=== PATIENT | male | born 1945 | race Caucasian/White ===

== ENCOUNTER 2018-05-29 16:50 | Observation (INO) ==
[2018-05-29 17:45] LABS: Hematocrit 44.2 % (37.5-50.1); Mean Corpuscular HGB Conc 31.7 g/dL (31.6-35.5); Mean Corpuscular Hemoglobin 30.2 pg (28.0-33.3); Mean Corpuscular Volume 95.3 fL (83.0-100.0); Mean Platelet Volume 10.9 fL (9.4-12.4); Platelet Count 190 K/mcL (140-400); Red Blood Count 4.64 M/mcL (4.19-5.50); Red Cell Distribution Width 14.4 % (11.5-14.5)
--- NOTE | 2018-05-29 17:48 | Emergency Department Note ---
Disposition Clinical Impression: Chest pain Qualifiers: Chest pain type: unspecified Qualified Code(s): R07.9 - Chest pain, unspecified Disposition: Still a Patient Condition: Fair Referrals: Osmany Berrios DO [Primary Care Provider] - Forms: ED Satisfaction Letter General Adult HPI - General Chief complaint: ED Chest Pain Stated complaint: SOB/Chest heaviness Time Seen by Provider: 05/29/18 17:04 Source: patient Limitations: no limitations Nursing Notes Reviewed: Yes Vital Signs Reviewed: Yes - History of Present Illness HPI Narrative: Patient presents with chest pressure which began at 7:00 this morning at home gradually and is constant and is worse with exertion with associated diaphoresis and dyspnea and a pleuritic aspect. The patient did have rotator cuff surgery of his right shoulder about one week ago. He did stop his Plavix briefly. He does have a history of heart. He is here with his 2 daughters who are both nurses. He denies any radiation and specifically no radiation to the neck, arm, jaw or back. The patient does have weight gain as well as lower extremity edema and is gained about 10 pounds of weight. Social history: Stopped smoking 19 years ago. No alcohol or drugs.( Pain Scale: 3 - Related Data Home Medications Medication Instructions Recorded Confirmed RX: Levothyroxine [Synthroid] 75 mcg PO DAILY 08/07/15 05/17/18 RX: metFORMIN [Glucophage] 500 mg PO BIDWM 08/07/15 05/17/18 RX: Aspirin [Lo-Dose Aspirin EC] 81 mg PO DAILY 09/05/16 05/17/18 RX: Nitroglycerin [Nitrostat] 0.4 mg SL Q5M PRN 09/05/16 05/17/18 RX: Atorvastatin [Lipitor] 40 mg PO HS 11/08/17 05/17/18 RX: Lansoprazole [Prevacid] 30 mg PO DAILY 11/08/17 05/18/18 RX: Losartan/Hydrochlorothiazide 1 tab PO DAILY 11/08/17 05/18/18 [Hyzaar 100-25 Tablet] RX: Psyllium Husk [Daily Fiber] 2 cap PO BID 11/08/17 05/17/18 RX: Ranitidine HCl [Acid Culinary Assistant] 150 mg PO BID 05/18/18 05/18/18 Previous Rx's Medication Instructions Recorded Albuterol Sulfate [Ventolin Hfa] 1 puff IH Q6H #1 hfa.aer.ad 05/20/18 RX: predniSONE [PredniSONE] 40 mg PO DAILY #5 tablet 05/20/18 levoFLOXacin [Levaquin] 750 mg PO DAILY #4 tablet 05/20/18 Allergies Allergy/AdvReac Type Severity Reaction Status Date / Time hydrocodone [From Vicodin] AdvReac Itching Verified 05/18/18 12:11 All systems ED: reviewed and negative except as stated. Past Medical History - Past Medical History Medical history: Reports: CHF, diabetes, hyperlipidemia, hypertension, kidney stones, RA, thyroid disease, other Surgical history: Reports: thyroidectomy, other Psychiatric history: Reports: no psych history - Social History Smoking Status: Former smoker Smokeless Tobacco Status: No Alcohol use: Reports: none Drug use: Reports: none Physical Exam CONSTITUTIONAL: Alert and oriented X3, well-nourished, well appearing, in no apparent distress HEAD: Normocephalic; atraumatic. EYES: PERRL, no scleral icterus. NOSE: The nose is normal in appearance without rhinorrhea RESP: Normal chest excursion with respiration; breath sounds was some minimal bilateral crackles which are symmetric and no wheezing CARD: Regular rhythm, without murmurs, rub or gallop ABD: Non-distended; non-tender, soft,without rigidity, rebound or guarding SKIN: Normal for age and race; warm and dry; no apparent lesions Extremities: Pulses 2+ and equal in all 4 extremities, bilateral symmetric lower extremity swelling with pitting pretibial edema - General Limitations: no limitations General appearance: alert, in no apparent distress Course Vital Signs Temperature 98.0 F 05/29/18 16:53 Pulse Rate 71 05/29/18 16:53 Respiratory Rate 05/29/18 16:53 Blood Pressure 139/66 05/29/18 16:53 O2 Sat by Pulse Oximetry 95 05/29/18 16:53 Temperature 98.0 F 05/29/18 16:53 Pulse Rate 73 05/29/18 19:15 Respiratory Rate 20 05/29/18 19:15 Blood Pressure 150/106 05/29/18 19:15 O2 Sat by Pulse Oximetry 95 05/29/18 19:15 Oxygen Delivery Oxygen Delivery Room Air Medical Decision Making - MDM Narrative Medical decision making narrative: The patient will have labs including BNP, troponin, d-dimer as well as a right upper extremity Doppler study, I did review the EKG showing sinus rhythm with a rate of 68 without acute ischemic change I did compared to a previous EKG from May 17 without significant change. Patient will be admitted to the hospital. Labs and chest x-ray are pending and will receive IV Lasix and nitroglycerin paste 1747 - Lab Data Result diagrams: 05/29/18 17:29 05/29/18 17:29 Lab Results 05/29/18 05/29/18 05/29/18 Range/Units 17:29 17:29 17: WBC 15.5 H (4.3-11.1) K/mcL RBC 4.64 (4.19-5.50) M/mcL Hgb 14.0 (12.9-16.9) g/dL Hct 44.2 (37.5-50.1) % MCV 95.3 (83.0-100.0) fL MCH 30.2 (28.0-33.3) pg MCHC 31.7 (31.6-35.5) g/dL RDW 14.4 (11.5-14.5) % Plt Count 190 (140-400) K/mcL MPV 10.9 (9.4-12.4) fL D-Dimer 1050 H (0-500) ng/mLFEU Sodium (136-145) mEq/L Potassium (3.5-5.1) mEq/L Chloride (98-107) mEq/L Carbon Dioxide (23-29) mEq/L BUN (8-23) mg/dL Creatinine (0.70-1.30) mg/dL Est GFR ( Amer) (> 60) Est GFR (Non-Af Amer) (> 60) BUN/Creatinine Ratio (6-26) Glucose (70-105) mg/dL Calculated Osmolality (280-300) Calcium (8.6-10.3) mg/dL Troponin I (< 0.04) ng/mL B-Natriuretic Peptide 102 H (Less than 100) pg/mL 05/29/18 Range/Units 17:29 WBC (4.3-11.1) K/mcL RBC (4.19-5.50) M/mcL Hgb (12.9-16.9) g/dL Hct (37.5-50.1) % MCV (83.0-100.0) fL MCH (28.0-33.3) pg MCHC (31.6-35.5) g/dL RDW (11.5-14.5) % Plt Count (140-400) K/mcL MPV (9.4-12.4) fL D-Dimer (0-500) ng/mLFEU Sodium 137 (136-145) mEq/L Potassium 4.0 (3.5-5.1) mEq/L Chloride 100 (98-107) mEq/L Carbon Dioxide 30 H (23-29) mEq/L BUN 14 (8-23) mg/dL Creatinine 0.64 L (0.70-1.30) mg/dL Est GFR ( Amer) > 60 (> 60) Est GFR (Non-Af Amer) > 60 (> 60) BUN/Creatinine Ratio 22 (6-26) Glucose 122 H (70-105) mg/dL Calculated Osmolality 286 (280-300) Calcium 9.3 (8.6-10.3) mg/dL Troponin I < 0.03 (< 0.04) ng/mL B-Natriuretic Peptide (Less than 100) pg/mL
[2018-05-29 18:05] LABS: BUN/Creatinine Ratio 22 (6-26); Blood Urea Nitrogen 14 mg/dL (8-23); Calcium 9.3 mg/dL (8.6-10.3); Carbon Dioxide 30 mEq/L (23-29); Chloride 100 mEq/L (98-107); Glucose 122 mg/dL (70-105); Osmolality,Calculated 286 (280-300); Sodium 137 mEq/L (136-145); eGFR For Non-African Americans > 60 (> 60)
[2018-05-29 18:06] LABS: Troponin I < 0.03 ng/mL (< 0.04)
[2018-05-29] MEDS ORDERED: Isovue-370 500 ML BOTTLE IVP ONE (19:19)
[2018-05-29] MEDS ORDERED: *HR* OxyCODONE/APAP 5/325 TABLET PO ONE (19:22)
--- NOTE | 2018-05-29 21:42 | Emergency Department Note ---
Disposition Clinical Impression: Chest pain Disposition: Still a Patient Condition: Fair Referrals: Osmany Berrios DO [Primary Care Provider] - Forms: ED Satisfaction Letter General Adult HPI - General Chief complaint: ED Chest Pain Stated complaint: SOB/Chest heaviness Time Seen by Provider: 05/29/18 17:04 Source: patient Limitations: no limitations Nursing Notes Reviewed: Yes Vital Signs Reviewed: Yes - History of Present Illness Pain Scale: 3 - Related Data Home Medications Medication Instructions Recorded Confirmed Levothyroxine [Synthroid] 75 mcg PO DAILY 08/07/15 05/17/18 metFORMIN [Glucophage] 500 mg PO BIDWM 08/07/15 05/17/18 Aspirin [Lo-Dose Aspirin EC] 81 mg PO DAILY 09/05/16 05/17/18 Nitroglycerin [Nitrostat] 0.4 mg SL Q5M PRN 09/05/16 05/17/18 Atorvastatin [Lipitor] 40 mg PO HS 11/08/17 05/17/18 Lansoprazole [Prevacid] 30 mg PO DAILY 11/08/17 05/18/18 Losartan/Hydrochlorothiazide 1 tab PO DAILY 11/08/17 05/18/18 [Hyzaar 100-25 Tablet] Psyllium Husk [Daily Fiber] 2 cap PO BID 11/08/17 05/17/18 Ranitidine HCl [Acid Helper Electrical] 150 mg PO BID 05/18/18 05/18/18 Previous Rx's Medication Instructions Recorded Albuterol Sulfate [Ventolin Hfa] 1 puff IH Q6H #1 hfa.aer.ad 05/20/18 levoFLOXacin [Levaquin] 750 mg PO DAILY #4 tablet 05/20/18 predniSONE [PredniSONE] 40 mg PO DAILY #5 tablet 05/20/18 Allergies Allergy/AdvReac Type Severity Reaction Status Date / Time hydrocodone [From Vicodin] AdvReac Itching Verified 05/18/18 12:11 Past Medical History - Past Medical History Medical history: Reports: CHF, diabetes, hyperlipidemia, hypertension, kidney stones, RA, thyroid disease, other Surgical history: Reports: thyroidectomy, other Psychiatric history: Reports: no psych history - Social History Smoking Status: Former smoker Smokeless Tobacco Status: No Alcohol use: Reports: none Drug use: Reports: none Physical Exam - General Limitations: no limitations General appearance: alert, in no apparent distress Course - Reevaluation(s) Reevaluation #1: See patient in sign out at 2200 by the departing emergency medicine attending Dr. Milton Jara. Patient has a history of PEs had recent wrist surgery comes in with chest pain shortness of breath. His workup revealed an elevated d-dimer of 1050. CT angiogram of the chest was reported to exclude the possibility of pulmonary embolism. If the CT scan is negative patient be admitted for acute coronary syndrome. Disposition pending Time: 21:41 Reevaluation #2: ED workup is completed. Skin trimmed chest is read by radiology as negative for pulmonary embolism. Again confirmed with patient that his cardiac history is positive for coronary artery disease with one stent placed in 2001 with no further incidents. Hospitalist has been paged. Patient resting comfortably in bed pain free at this time. Admission disposition pending Time: 22:59 Vital Signs Temperature 98.0 F 05/29/18 16:53 Pulse Rate 71 05/29/18 16:53 Respiratory Rate 20 05/29/18 16:53 Blood Pressure 139/66 05/29/18 16:53 O2 Sat by Pulse Oximetry 95 05/29/18 16:53 Temperature 98.0 F 05/29/18 16:53 Pulse Rate 68 05/29/18 22:32 Respiratory Rate 22 05/29/18 22:32 Blood Pressure 128/82 05/29/18 22:32 O2 Sat by Pulse Oximetry 95 05/29/18 22:32 Oxygen Delivery Oxygen Delivery Room Air Medical Decision Making - Lab Data Result diagrams: 05/29/18 17:29 05/29/18 17:29 Lab Results 05/29/18 05/29/18 05/29/18 Range/Units 17:29 17:29 17:29 WBC 15.5 H (4.3-11.1) K/mcL RBC 4.64 (4.19-5.50) M/mcL Hgb 14.0 (12.9-16.9) g/dL Hct 44.2 (37.5-50.1) % MCV 95.3 (83.0-100.0) fL MCH 30.2 (28.0-33.3) pg MCHC 31.7 (31.6-35.5) g/dL RDW 14.4 (11.5-14.5) % Plt Count 190 (140-400) K/mcL MPV 10.9 (9.4-12.4) fL D-Dimer 1050 H (0-500) ng/mLFEU Sodium (136-145) mEq/L Potassium (3.5-5.1) mEq/L Chloride (98-107) mEq/L Carbon Dioxide (23-29) mEq/L BUN (8-23) mg/dL Creatinine (0.70-1.30) mg/dL Est GFR ( Amer) (> 60) Est GFR (Non-Af Amer) (> 60) BUN/Creatinine Ratio (6-26) Glucose (70-105) mg/dL Calculated Osmolality (280-300) Calcium (8.6-10.3) mg/dL Troponin I (< 0.04) ng/mL B-Natriuretic Peptide 102 H (Less than 100) pg/mL 05/29/18 Range/Units 17:29 WBC (4.3-11.1) K/mcL RBC (4.19-5.50) M/mcL Hgb (12.9-16.9) g/dL Hct (37.5-50.1) % MCV (83.0-100.0) fL MCH (28.0-33.3) pg MCHC (31.6-35.5) g/dL RDW (11.5-14.5) % Plt Count (140-400) K/mcL MPV (9.4-12.4) fL D-Dimer (0-500) ng/mLFEU Sodium 137 (136-145) mEq/L Potassium 4.0 (3.5-5.1) mEq/L Chloride 100 (98-107) mEq/L Carbon Dioxide 30 H (23-29) mEq/L BUN 14 (8-23) mg/dL Creatinine 0.64 L (0.70-1.30) mg/dL Est GFR ( Amer) > 60 (> 60) Est GFR (Non-Af Amer) > 60 (> 60) BUN/Creatinine Ratio 22 (6-26) Glucose 122 H (70-105) mg/dL Calculated Osmolality 286 (280-300) Calcium 9.3 (8.6-10.3) mg/dL Troponin I < 0.03 (< 0.04) ng/mL B-Natriuretic Peptide (Less than 100) pg/mL
[2018-05-29] MEDS ORDERED: Aspirin 325 MG TABLET PO ONE (23:05)
[2018-05-29] MEDS ORDERED: Furosemide 20 MG/2 ML VIAL IVP ONE (23:57)
[2018-05-29] MEDS ORDERED: Nitroglycerin 0.4 MG TAB.SUBL SL PRN (23:58)
--- NOTE | 2018-05-29 23:58 | Internal Med History&Physical ---
Date of Encounter: 05/29/18 Time of Encounter: 23:58 Internal Medicine - H&P: HPI Chief complaint: chest pain Admitted From: Home Plans for Post Hospital Care: Home History of present illness: Aston Hatfield is a 72 year old man with coronary artery disease s/p PCI in 2005 with 1 stent placed in his RCA, hypertension and diabetes who was recently admitted for right shoulder replacement surgery with a postoperative course remarkable for acute respiratory failure due to transient paralysis of the right hemidiaphragm from the nerve block and required treatment for pneumonia with antibiotics as well as a steroid course for associated COPD. He comes in today complaining of chest pain that started when he woke up this morning describing it as a pressure sensation accompanied by shortness of breath. There was no associated diaphoresis or any radiation of the pain. It persisted through the course of the day and in the ER his evaluation was remarkable for an elevated d- dimer which prompted a CT angiogram and this was negative for pulmonary embolism. EKG is reviewed by me revealed normal sinus rhythm with occasional PVCs. No fluid congestion on x-ray. Troponin negative. He was given loading dos e of aspirin and oral pain medications. He is now admitted for observation. Of note, he was off his antiplatelet therapy for about one week during the recent perioperative window. Past Med Surg Social Fam HX - Past Medical History Medical history: CHF, diabetes, hyperlipidemia, hypertension, kidney stones, RA, thyroid disease, other Additional medical history: CAD. Renal and ureteric calculus. BPH. sleep apnea. cluster headaches. hiatal hernia Psychiatric history: no psych history - Past Surgical History Surgical History: thyroidectomy, other Additional surgical history: back sx, hernia. kidney stones. left ankle x2. sinus surgery. cardiac stent x1. shoulder surgery. ureteroscopic stone extraction. TURP. Left knee. right knee. right shoulder. left shoulder. colonoscopy. EGD. medtronic device for headaches. right thyroidectomy - Social History Smoking Status: Former smoker Smokeless Tobacco Status: No Alcohol use: none Drug use: none - Family History Father Daughter Hx Family Cardiac Disorders: Yes (HTN) Mother Hx Family Endocrine Disorder: Yes (DM) Internal Medicine - H&P: Meds Levothyroxine [Synthroid] 75 mcg PO DAILY 08/07/15 [History] metFORMIN [Glucophage] 500 mg PO BIDWM 08/07/15 [History] Aspirin [Lo-Dose Aspirin EC] 81 mg PO DAILY 09/05/16 [History] Nitroglycerin [Nitrostat] 0.4 mg SL Q5M PRN 09/05/16 [History] Atorvastatin [Lipitor] 40 mg PO HS 11/08/17 [History] Lansoprazole [Prevacid] 30 mg PO DAILY 11/08/17 [History] Losartan/Hydrochlorothiazide [Hyzaar 100-25 Tablet] 1 tab PO DAILY 11/08/17 [History] Psyllium Husk [Daily Fiber] 2 cap PO BID 11/08/17 [History] Ranitidine HCl [Acid Program Supervisor] 150 mg PO BID 05/18/18 [History] Albuterol Sulfate [Ventolin Hfa] 1 puff IH Q6H #1 hfa.aer.ad 05/20/18 [Rx] levoFLOXacin [Levaquin] 750 mg PO DAILY #4 tablet 05/20/18 [Rx] Allergy/AdvReac Type Severity Reaction Status Date / Time hydrocodone [From Vicodin] AdvReac Itching Verified 05/18/18 12:11 All Systems PM: A 10-system review of systems was performed and is negative for pertinent findings except as documented above in the HPI. - Constitutional Vitals: Temp Pulse Resp BP Pulse Ox 98.0 F 71 20 148/80 94 05/29/18 16:53 05/29/18 23:28 05/29/18 23:28 05/29/18 23:28 05/29/18 23:28 Exam: Vitals: Reviewed General: Well-developed and well-appearing white man lying comfortably in bed in no acute distress. Skin: Warm and supple. HEENT: Moist mucous membranes. No conjunctivae pallor. Neck: No lymphadenopathy. No JVD. No carotid bruits. No palpable thyroid. Chest: Normal thoracic expansion. Normal breath sounds. Clear to auscultation. Heart: Normal S1 & S2; rhythmic. No rubs or murmurs. Abdomen: Non-distended, soft and non-tender to palpation. No peritoneal reaction. Extremities: No clubbing, cyanosis or edema. No calf tenderness. Normal distal pulses. Right shoulder surgical site clean, dry and intact. Minimal pain. Neurological: Awake, alert and oriented to person, place and time. No focal deficits. Psych: Affect appropriate. Internal Med - H&P Results - Labs CBC & Chem 7: 05/29/18 17:29 05/29/18 17:29 Labs: Short CBC 05/29/18 Range/Units 17:29 WBC 15.5 H (4.3-11.1) K/mcL Hgb 14.0 (12.9-16.9) g/dL Hct 44.2 (37.5-50.1) % Plt Count 190 (140-400) K/mcL BMP 05/29/18 17:29 Sodium 137 Potassium 4.0 Chloride 100 Carbon Dioxide 30 H BUN 14 Creatinine 0.64 L Glucose 122 H Calcium 9.3 Cardiac Enzymes 05/29/18 Range/Units 17:29 Troponin I < 0.03 (< 0.04) ng/mL - Impressions ITS Impressions Chest X-Ray 05/29/18 17:17 IMPRESSION: 1. No acute cardiopulmonary abnormality. 2. Stable cardiomegaly. 3. Interval right shoulder arthroplasty. D/ / Gabo Jalloh / Gabo Jalloh Interpreting Provider: Gabo Jalloh Chest CTA 05/29/18 19:19 IMPRESSION: No evidence of pulmonary embolism or acute pulmonary abnormality. D/ / Jes Ronquillo Cha, MD / Jes Ronquillo Cha, MD Interpreting Provider: Jes Ronquillo Cha, MD - Assessment and plan (1) Chest pain Current Visit: Yes Status: Acute Assessment and plan: Newly occurring pain in a patient with known CAD. Initial troponin/ekg not suggestive of acute ischemia. Will monitor on telemetry, trend enzymes, assess for recurring pain, check TTE in the morning and possibly undergo stress test. Qualifiers: Chest pain type: unspecified Qualified Code(s): R07.9 - Chest pain, unspecified (2) COPD (chronic obstructive pulmonary disease) Current Visit: Yes Status: Acute Assessment and plan: No signs of active disease at the moment. Nebulizer therapy ordered as needed. Qualifiers: COPD type: unspecified COPD Qualified Code(s): J44.9 - Chronic obstructive pulmonary disease, unspecified (3) Status post reverse total replacement of right shoulder Current Visit: Yes Status: Acute Assessment and plan: Will continue physical therapy at home. Pain medication a needed while here. (4) Diabetes mellitus Current Visit: Yes Status: Chronic Assessment and plan: Will hold oral medications and place on insulin sliding scale for now. 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 Will resume home meds once verified. Qualifiers: Hypertension type: essential hypertension Qualified Code(s): I10 - [facility] l (primary) hypertension (6) PATRICK (obstructive sleep apnea) Current Visit: Yes Status: Chronic Assessment and plan: Non-adherent to CPAP use. Will order. (7) DVT prophylaxis Current Visit: Yes Status: Acute Assessment and plan: SubQ heparin - Time Spent With Patient Total time spent is greater than 50% in coordination of care (as documented) at patient's floor/unit and/or counseling patient: Greater than 35 minutes
[2018-05-30] MEDS ORDERED: Acetaminophen 325 MG TABLET PO PRN (00:01)
[2018-05-30] MEDS ORDERED: traMADol 50 MG TABLET PO PRN (00:01)
[2018-05-30] MEDS ORDERED: Naloxone 0.4 MG/ML INJ IVP PRN (00:01)
[2018-05-30] MEDS ORDERED: Dextrose Gel 15 GM/37.5 ML TUBE PO PRN ×2 (00:01)
[2018-05-30] MEDS ORDERED: Ipratropium/Albuterol Neb 3 ML IH PRN (00:23)
[2018-05-30 01:16] LABS: Prothrombin Time 11.7 Seconds (9.4-12.1)
[2018-05-30 01:19] LABS: Activated Partial Thrombo Time 27.9 Seconds (26.0-36.0)
[2018-05-30] MEDS ORDERED: Regadenoson 0.4 MG/5 ML SYRINGE IVP ONE (05:57)
[2018-05-30] MEDS ORDERED: *HR* Heparin 5,000 UNIT/ML VIAL SQ SCH (06:00)
[2018-05-30] MEDS: Insulin LISPRO 300 UNITS/3 ML VIAL SQ SCH ×2 (06:21→12:26)
[2018-05-30 07:17] LABS: Hematocrit 44.7 % (37.5-50.1); Hemoglobin 14.4 g/dL (12.9-16.9); Mean Corpuscular HGB Conc 32.2 g/dL (31.6-35.5); Mean Corpuscular Hemoglobin 30.4 pg (28.0-33.3); Mean Corpuscular Volume 94.5 fL (83.0-100.0); Mean Platelet Volume 11.3 fL (9.4-12.4); Platelet Count 184 K/mcL (140-400); Red Blood Count 4.73 M/mcL (4.19-5.50); Red Cell Distribution Width 14.4 % (11.5-14.5)
[2018-05-30 07:36] LABS: BUN/Creatinine Ratio 21 (6-26); Blood Urea Nitrogen 15 mg/dL (8-23); Calcium 9.3 mg/dL (8.6-10.3); Carbon Dioxide 29 mEq/L (23-29); Chloride 100 mEq/L (98-107); Glucose 186 mg/dL (70-105); Osmolality,Calculated 290 (280-300); Potassium 3.7 mEq/L (3.5-5.1); Sodium 137 mEq/L (136-145); eGFR For Non-African Americans > 60 (> 60)
[2018-05-30 08:14] LABS: Eosinophils # 0.2 K/mcL (0.0-0.6); Lymphocytes # 3.6 K/mcL (0.6-4.6); Monocytes # 0.6 K/mcL (0.0-1.3); Neutrophils # 10.5 K/mcL (1.6-8.9)
[2018-05-30 08:15] LABS: Platelet Estimate Normal (Normal); Reactive Lymphocytes Present (Not Present)
[2018-05-30] MEDS ORDERED: Aspirin Enteric Coated 81 MG Tablet PO SCH (09:00)
[2018-05-30] MEDS ORDERED: Losartan/HCTZ 50-12.5 TABLET PO SCH (09:00)
[2018-05-30 12:07] VITALS: BP 150/85
--- NOTE | 2018-05-30 12:41 | Discharge Summary ---
- NOTES TO OUTPATIENT PROVIDER Notes to Outpatient Provider: Patient presented with chest pain underwent stress test which was negative for any ischemia or infarct echo EF of 55% and mild concentric left ventricular hypertrophy and mild left ventricular diastolic dysfunction normal right ventricular structure and functionvalvular dysfunction no evidence of pulmonary hypertension Orders not resulted at time of discharge: Pending orders 05/30/18 00:00 NM julio perf SPECT multi [NM] Routine Date of Encounter: 05/30/18 Time of Encounter: 12:38 - Discharge Diagnosis (1) HTN (hypertension) Priority: Secondary Status: Chronic Qualifiers: Hypertension type: essential hypertension Qualified Code(s): I10 - Essential (primary) hypertension (2) Diabetes mellitus Priority: Secondary Status: Chronic Qualifiers: Diabetes mellitus type: type 2 Diabetes mellitus half-way insulin use: without half-way use Diabetes mellitus complication status: without complication Qualified Code(s): E11.9 - Type 2 diabetes mellitus without complications (3) PATRICK (obstructive sleep apnea) Priority: Secondary Status: Chronic (4) Status post reverse total replacement of right shoulder Priority: Secondary Status: Acute (5) Chest pain Priority: Primary Status: Acute Qualifiers: Chest pain type: unspecified Qualified Code(s): R07.9 - Chest pain, unspecified (6) COPD (chronic obstructive pulmonary disease) Priority: Secondary Status: Acute Qualifiers: COPD type: unspecified COPD Qualified Code(s): J44.9 - Chronic obstructive pulmonary disease, unspecified Hospital course: Mr. Hatfield is a 72 year old male past medical history of COPD CHF diabetes hypertension and thyroid disease coronary artery disease PCI 2005 with 1 stent placement in his RCA hypertension diabetes recently admitted for right shoulder replacement surgery with postoperative course significant for acute respiratory failure due to transient paralysis of right hemothorax diaphragm and the nerve block and required treatment for pneumonia with antibiotics as well as steroid course for COPD. He presented with chest pain started after waking with associa ramo symptoms of shortness of breath upon presentation to the ER lab work did reveal elevated d-dimer CTA angiogram was negative for pulmonary embolism EKG did show some sinus rhythm with occasional PVCs troponins were negative 3 he did undergo a cardiac stress test which was negative for any ischemia or infarct. Cardiac echo completed his did show EF 55-60% and mild concentric left ventricular hypertrophy mild left ventricular diastolic dysfunction normal right ventricular structure and function no significant valvular disease no evidence pulmonary hypertension. He has remained chest pain-free during this admission. His only complaint has been his right shoulder and right shoulder pain and tenderness. Patient states he has a appointment with orthopedics tomorrow and would like for us to remove dressing today severe he would not have to follow up tomorrow. Advised patient that he needs to follow-up with his surgeon and have dressing removed and examined by the surgeon. Of note lab work did show an elevated white count however patient has been on a steroid course due to COPD exacerbation. Advised patient to follow-up with his primary care provider since his provider Vonnie Sylvester can adjust medications accordingly. Currently patient is hemodynamically stable at this time with no chest pain and he is ready for discharge - Time Spent with Patient Total time spent providing and/or coordinating discharge services: - Discharge Medications Home Medications: Levothyroxine [Synthroid] 75 mcg PO DAILY 08/07/15 [History] metFORMIN [Glucophage] 500 mg PO BID 08/07/15 [History] Aspirin [Lo-Dose Aspirin EC] 81 mg PO HS 09/05/16 [History] Nitroglycerin [Nitrostat] 0.4 mg SL Q5M PRN 09/05/16 [History] Atorvastatin [Lipitor] 40 mg PO HS 11/08/17 [History] Losartan/Hydrochlorothiazide [Hyzaar 100-25 Tablet] 1 tab PO DAILY 11/08/17 [History] Psyllium Husk [Daily Fiber] 2 cap PO BID 11/08/17 [History] Ranitidine HCl [Acid Dynamometer Tester] 150 mg PO BID 05/18/18 [History] Albuterol Sulfate [Ventolin Hfa] 1 puff IH Q6H #1 hfa.aer.ad 05/20/18 [Rx] Lansoprazole [Prevacid] 15 mg PO DAILY 05/30/18 [History] [place]-3/Dha/Epa/Fish Oil [Cvs Fish Oil 1,000 mg Softgel] 1 cap PO QAM 05/30/18 [History] [place]-3/Dha/Epa/Fish Oil [Fish Oil 1,000 mg Softgel] 2 cap PO HS 05/30/18 [History] OxyCODONE/APAP 5/325 [Percocet 5/325 MG] 1 tab PO Q6H PRN 05/30/18 [History] Trazodone HCl 50 mg PO QPM 05/30/18 [History] Allergies/Adverse Reactions: Allergy/AdvReac Type Severity Reaction Status Date / Time hydrocodone [From Vicodin] AdvReac Itching Verified 05/18/18 12:11 Date of admission: 05/29/18 23:16 Primary care physician: Osmany Berrios DO Discharging clinician: Melba rBown Anticipated date of discharge: 05/30/18 - Constitutional Vitals: Temp Pulse Resp BP Pulse Ox 97.7 F 73 16 150/85 95 05/30/18 11:58 05/30/18 11:58 05/30/18 11:58 05/30/18 11:58 05/30/18 11:58 General appearance: Present: A&O X 3 Exam: Vitals: Reviewed General: Well-developed and well-appearing white man lying comfortably in bed in no acute distress. Skin: Warm and supple. HEENT: Moist mucous membranes. No conjunctivae pallor. Neck: No lymphadenopathy. No JVD. No carotid bruits. No palpable thyroid. Chest: Normal thoracic expansion. Normal breath sounds. Clear to auscultation. Heart: Normal S1 & S2; rhythmic. No rubs or murmurs. Abdomen: Non-distended, soft and non-tender to palpation. No peritoneal reaction. Extremities: No clubbing, cyanosis or edema. No calf tenderness. Normal distal pulses. Right shoulder surgical site clean, dry and intact. Minimal pain. Neurological: Awake, alert and oriented to person, place and time. No focal deficits. Psych: Affect appropriate. - Head Head exam: Present: atraumatic, normocephalic - Eye Eye exam: Present: PERRL, conjuntiva pink, sclera anicteric Pupils: Present: PERRL - Neck Neck exam general surgery: Present: supple, trachea midline. Absent: lymphadenopathy - Respiratory Respiratory exam: Present: CTAB. Absent: accessory muscle use, rales, rhonchi, wheezes - Cardiovascular Cardiovascular exam: Present: RRR, +S1, +S2. Absent: diastolic murmur, gallop, rubs, systolic murmur - GI/Abdominal GI/Abdominal exam: Present: normal bowel sounds, soft, no peritoneal signs. Absent: distended, tenderness - Extremities Exam Extremities exam: Present: warm, radial pulses palpable and symmetrical. Absen t: calf tenderness, cyanotic, pedal edema - Neurological Exam Neurological exam: Present: CN II-XII intact, oriented X3, no focal deficits. Absent: pronater drift, facial droop, speech deficit - Skin Skin exam: Present: dry, intact - Patient Status Disposition: Home, Self-Care Condition: Fair Functional capacity at discharge: independent ambulation Overall status at discharge: patient is back to baseline - Discharge Instructions Follow Up With: Brian Vazquez MD [Partnered Physician] - 05/31/18 Osmany Berrios DO [Primary Care Provider] - 06/06/18 1:00 pm - Diet and Activity Activity: increase activity as tolerated Diet: advance to your usual diet
--- NOTE | 2018-06-01 10:18 | Electrocardiograph Report ---
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
== END 2018-05-30 14:07 | disposition home or self-care (01) ==
LOC: EMEROOARM 16:50 → 3BNU 16:50
PROVIDERS: ADMIT Internal Medicine; ATTEND Internal Medicine

== ENCOUNTER 2018-12-24 13:43 | Observation (INO) ==
[2018-12-24] MEDS ORDERED: Nitroglycerin 0.4 MG TAB.SUBL SL PRN (14:19)
[2018-12-24] MEDS ORDERED: Aspirin 81 MG TAB.CHEW PO ONE (14:19)
--- NOTE | 2018-12-24 14:30 | Emergency Department Note ---
Disposition Clinical Impression: Chest pain Qualifiers: Chest pain type: unspecified Qualified Code(s): R07.9 - Chest pain, unspecified Dyspnea Qualifiers: Dyspnea type: unspecified Qualified Code(s): R06.00 - Dyspnea, unspecified Disposition: Admitted As Inpatient Condition: Fair Time of Disposition: 15:39 General Adult HPI - General Chief complaint: ED Shortness of Breath/Dyspnea Stated complaint: CP Time Seen by Provider: 12/24/18 13:52 Source: patient Mode of arrival: ambulatory Limitations: no limitations Nursing Notes Reviewed: Yes Vital Signs Reviewed: Yes - History of Present Illness HPI Narrative: Patient is 73-year-old male with past medical history of CHF, CAD, angioplasty 2005, HTN, HLD, RA as well as multiple orthopedic surgeries presents to the ED for evaluation of chest pain and dyspnea is been going on since yesterday evening. Chest pain began last night, substernal, dull pain, 7/10, intermittent yesterday evening and constant today. 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 Dyspnea associated with CP and worsens with inspiration. Has had recent EGD and placed on Prilosec. Feel similar to when he had stent placed in 2005. No radiation. Chronic right shoulder pain due to shoulder replacement surgery. Denies fever, chills or new cough, N/V/D, constipation, or abd pain. Edema bilateral, but unchanged. No Hx of CVA, DVT/PE. Pain Scale: 7 - Related Data Home Medications Medication Instructions Recorded Confirmed Levothyroxine [Synthroid] 75 mcg PO DAILY 08/07/15 12/24/18 metFORMIN [Glucophage] 500 mg PO BID 08/07/15 12/24/18 Aspirin [Lo-Dose Aspirin EC] 81 mg PO HS 09/05/16 12/24/18 Nitroglycerin [Nitrostat] 0.4 mg SL Q5M PRN 09/05/16 12/24/18 Atorvastatin [Lipitor] 40 mg PO HS 11/08/17 12/24/18 Losartan/Hydrochlorothiazide 1 tab PO DAILY 11/08/17 12/24/18 [Hyzaar 100-25 Tablet] Psyllium Husk [Daily Fiber] 2 cap PO BID 11/08/17 12/24/18 Lansoprazole [Prevacid] 15 mg PO DAILY 05/30/18 12/24/18 Omeprazole [PriLOSEC] 40 mg PO BID 12/24/18 12/24/18 Allergies Allergy/AdvReac Type Severity Reaction Status Date / Time hydrocodone [From Vicodin] AdvReac Itching Verified 05/18/18 12:11 All systems ED: reviewed and negative except as stated. Review of Systems: As Per HPI Constitutional: Denies: fever, chills Cardiovascular: Reports: chest pain, dyspnea on exertion, edema. Denies: palpitations, syncope, paroxysmal nocturnal dyspnea Respiratory: Reports: dyspnea. Denies: cough, wheezes, hemoptysis, sputum production Gastrointestinal: Denies: abdominal pain, nausea, vomiting, diarrhea Genitourinary: Denies: urgency, dysuria, frequency Musculoskeletal: Denies: back pain, neck pain Integumentary: Denies: rash Past Medical History - Past Medical History Attestation: Yes The following information was validated with the patient. Medical history: Reports: CHF, coronary artery disease, diabetes, hyperlipidemia, hypertension, kidney stones, RA, thyroid disease, other Surgical history: Reports: thyroidectomy, other Psychiatric history: Reports: no psych history - Social History Smoking Status: Former smoker Smokeless Tobacco Status: No Alcohol use: Reports: none Drug use: Reports: none Physical Exam CONSTITUTIONAL: Well-appearing; well-nourished; A&O X 3, in no apparent distress HEAD: Normocephalic; atraumatic EYES: PERRL, no scleral icterus NOSE: The nose is normal in appearance without rhinorrhea NECK: No JVD or distended neck veins RESP: Normal chest excursion with respiration; breath sounds clear and equal bilaterally; no wheezes, rhonchi, or rales CARD: Regular rhythm, without murmurs, rub or gallop ABD: Non-distended; non-tender, soft, without rigidity, rebound or guarding,no pulsatile mass CHEST: No pain with palpation SKIN: Normal for age and race; warm and dry without diaphoresis ; no apparent lesions EXTREMITIES: Pulses are 2 plus and equal times 4 extremities, very faint bilateral edema or calf muscle pain - General Limitations: no limitations General appearance: alert, in no apparent distress Course Course Narrative: DDX considered but not limited to UT/CAD, CHF exacerbation, or PE. D-dimer was in the 300s which was considered negative for further evaluation for PE. Cardiac workup otherwise unremarkable with a negative troponin, nonischemic EKG as well as a normal chest x-ray. Given history of heart failure patient had a echo performed in April 2017 which she had a normal EF and his BNP today was within normal limits. His pain has been gradually improving and he refused any nitroglycerin. He will given a dose of morphine for his pain. Patient admitted to the hospitalist for chest pain evaluation. Vital Signs Temperature 97.7 F 12/24/18 13:46 Pulse Rate 80 12/24/18 13:46 Respiratory Rate 18 12/24/18 13:46 Blood Pressure 0/0 12/24/18 13:46 O2 Sat by Pulse Oximetry 94 12/24/18 13:46 Temperature 98.3 F 12/24/18 18:30 Pulse Rate 72 12/24/18 18:30 Respiratory Rate 18 12/24/18 18:30 Blood Pressure 138/82 12/24/18 18:30 O2 Sat by Pulse Oximetry 94 12/24/18 18:30 Oxygen Delivery Oxygen Delivery Room Air Medical Decision Making - Medical Records Medical records reviewed: Yes I reviewed the patient's medical records. - Lab Data Lab results reviewed: Yes I reviewed the patient's lab results. Result diagrams: 12/24/18 14:39 12/24/18 14:39 Lab Results 12/24/18 12/24/18 12/24/18 Range/Units 14:39 14:39 14:39 WBC 12.1 H (4.3-11.1) K/mcL RBC 5.10 (4.19-5.50) M/mcL Hgb 14.5 (12.9-16.9) g/dL Hct 46.0 (37.5-50.1) % MCV 90.2 (83.0-100.0) fL MCH 28.4 (28.0-33.3) pg MCHC 31.5 L (31.6-35.5) g/dL RDW 14.9 H (11.5-14.5) % Plt Count 196 (140-400) K/mcL MPV 11.8 (9.4-12.4) fL Immature Gran % 2.6 (0-4) % Seg Neutrophils % 57.9 % Lymphocytes % 26.6 % Monocytes % 9.3 % Eosinophils % 2.7 % Basophils % 0.9 % Neutrophils # 7.0 (1.6-8.9) K/mcL Lymphocytes # 3.2 (0.6-4.6) K/mcL Monocytes # 1.1 (0.0-1.3) K/mcL Eosinophils # 0.3 (0.0-0.6) K/mcL Basophils # 0.1 (0.0-0.2) K/mcL D-Dimer 334 (0-500) ng/mLFEU Sodium (136-145) mEq/L Potassium (3.5-5.1) mEq/L Chloride (98-107) mEq/L Carbon Dioxide (23-29) mEq/L BUN (8-23) mg/dL Creatinine (0.70-1.30) mg/dL Est GFR ( Amer) (> 60) Est GFR (Non-Af Amer) (> 60) BUN/Creatinine Ratio (6-26) Glucose (70-105) mg/dL Calculated Osmolality (280-300) Calcium (8.6-10.3) mg/dL Troponin I (< 0.04) ng/mL B-Natriuretic Peptide 35 (Less than 100) pg/mL Urine Color (Yellow) Urine Clarity (Clear) Urine pH (5.0-8.0) pH Units Ur Specific [place] (1.010-1.025) Urine Protein (Neg-Trace) mg/dL Urine Glucose (UA) (Normal) mg/dL Urine Ketones (Negative) mg/dL Urine Blood (Negative) Urine Nitrite (Negative) Urine Bilirubin (Negative) Urine Urobilinogen (Normal) mg/dL Ur Leukocyte Esterase (Negative) 12/24/18 12/24/18 Range/Units 14:39 17:04 WBC (4.3-11.1) K/mcL RBC (4.19-5.50) M/mcL Hgb (12.9-16.9) g/dL Hct (37.5-50.1) % MCV (83.0-100.0) fL MCH (28.0-33.3) pg MCHC (31.6-35.5) g/dL RDW (11.5-14.5) % Plt Count (140-400) K/mcL MPV (9.4-12.4) fL Immature Gran % (0-4) % Seg Neutrophils % % Lymphocytes % % Monocytes % % Eosinophils % % Basophils % % Neutrophils # (1.6-8.9) K/mcL Lymphocytes # (0.6-4.6) K/mcL Monocytes # (0.0-1.3) K/mcL Eosinophils # (0.0-0.6) K/mcL Basophils # (0.0-0.2) K/mcL D-Dimer (0-500) ng/mLFEU Sodium 138 (136-145) mEq/L Potassium 3.9 (3.5-5.1) mEq/L Chloride 102 (98-107) mEq/L Carbon Dioxide 24 (23-29) mEq/L BUN 16 (8-23) mg/dL Creatinine 0.66 L (0.70-1.30) mg/dL Est GFR ( Amer) > 60 (> 60) Est GFR (Non-Af Amer) > 60 (> 60) BUN/Creatinine Ratio 24 (6-26) Glucose 177 H (70-105) mg/dL Calculated Osmolality 292 (280-300) Calcium 9.8 (8.6-10.3) mg/dL Troponin I < 0.03 (< 0.04) ng/mL B-Natriuretic Peptide (Less than 100) pg/mL Urine Color Yellow (Yellow) Urine Clarity Clear (Clear) Urine pH 5.5 (5.0-8.0) pH Units Ur Specific [place] 1.021 (1.010-1.025) Urine Protein Negative (Neg-Trace) mg/dL Urine Glucose (UA) Normal (Normal) mg/dL Urine Ketones Negative (Negative) mg/dL Urine Blood Negative (Negative) Urine Nitrite Negative (Negative) Urine Bilirubin Negative (Negative) Urine Urobilinogen Normal (Normal) mg/dL Ur Leukocyte Esterase Negative (Negative) - Radiology Data Radiology results reviewed: Yes I reviewed the patient's radiology results. Chest X-Ray 12/24/18 14:20 IMPRESSION: No acute process. D/ / 12/24/2018 14:46:53 Tone Costello MD / [email or web address] Interpreting Provider: Tone Costello MD - EKG Data EKG #1 EKG attestation: Yes I reviewed and interpreted this EKG. EKG results narrative: EKG done at 13:52 shows sinus rhythm at a rate of 83 bpm. Normal axis. Intervals within normal limits. No signs of ischemia.
[2018-12-24 14:59] LABS: Basophils # 0.1 K/mcL (0.0-0.2); Basophils % 0.9 %; Eosinophils # 0.3 K/mcL (0.0-0.6); Eosinophils % 2.7 %; Hemoglobin 14.5 g/dL (12.9-16.9); Immature Granulocytes % 2.6 % (0-4); Lymphocytes # 3.2 K/mcL (0.6-4.6); Lymphocytes % 26.6 %; Mean Corpuscular HGB Conc 31.5 g/dL (31.6-35.5); Mean Corpuscular Hemoglobin 28.4 pg (28.0-33.3); Mean Corpuscular Volume 90.2 fL (83.0-100.0); Mean Platelet Volume 11.8 fL (9.4-12.4); Monocytes # 1.1 K/mcL (0.0-1.3); Monocytes % 9.3 %; Platelet Count 196 K/mcL (140-400); Red Cell Distribution Width 14.9 % (11.5-14.5); Segmented Neutrophils % 57.9 %; White Blood Count 12.1 K/mcL (4.3-11.1)
[2018-12-24 15:29] LABS: BUN/Creatinine Ratio 24 (6-26); Blood Urea Nitrogen 16 mg/dL (8-23); Calcium 9.8 mg/dL (8.6-10.3); Carbon Dioxide 24 mEq/L (23-29); Chloride 102 mEq/L (98-107); Glucose 177 mg/dL (70-105); Osmolality,Calculated 292 (280-300); Potassium 3.9 mEq/L (3.5-5.1); Sodium 138 mEq/L (136-145); Troponin I < 0.03 ng/mL (< 0.04); eGFR For African Americans > 60 (> 60); eGFR For Non-African Americans > 60 (> 60)
[2018-12-24] MEDS ORDERED: Acetaminophen 325 MG TABLET PO ONE (15:39)
--- NOTE | 2018-12-24 15:57 | Emergency Department Note ---
Disposition Clinical Impression: Dyspnea Qualifiers: Dyspnea type: unspecified Qualified Code(s): R06.00 - Dyspnea, unspecified Chest pain Qualifiers: Chest pain type: unspecified Qualified Code(s): R07.9 - Chest pain, unspecified Disposition: Admitted As Inpatient Condition: Fair Referrals: Osmany Berrios DO [Primary Care Provider] - Forms: ED Satisfaction Letter Time of Disposition: 15:57 General Adult HPI - General Chief complaint: ED Shortness of Breath/Dyspnea Stated complaint: CP Time Seen by Provider: 12/24/18 13:52 Source: patient Mode of arrival: ambulatory Limitations: no limitations - History of Present Illness Pain Scale: 7 - Related Data Home Medications Medication Instructions Recorded Confirmed Levothyroxine [Synthroid] 75 mcg PO DAILY 08/07/15 05/30/18 metFORMIN [Glucophage] 500 mg PO BID 08/07/15 05/30/18 Aspirin [Lo-Dose Aspirin EC] 81 mg PO HS 09/05/16 05/30/18 Nitroglycerin [Nitrostat] 0.4 mg SL Q5M PRN 09/05/16 05/30/18 Atorvastatin [Lipitor] 40 mg PO HS 11/08/17 05/30/18 Losartan/Hydrochlorothiazide 1 tab PO DAILY 11/08/17 05/30/18 [Hyzaar 100-25 Tablet] Psyllium Husk [Daily Fiber] 2 cap PO BID 11/08/17 05/30/18 Ranitidine HCl [Acid Corporate Planning Manager] 150 mg PO BID 05/18/18 05/30/18 Lansoprazole [Prevacid] 15 mg PO DAILY 05/30/18 05/30/18 [place]-3/Dha/Epa/Fish Oil [Cvs Fish 1 cap PO QAM 05/30/18 05/30/18 Oil 1,000 mg Softgel] [place]-3/Dha/Epa/Fish Oil [Fish Oil 2 cap PO HS 05/30/18 05/30/18 1,000 mg Softgel] OxyCODONE/APAP 5/325 [Percocet 1 tab PO Q6H PRN 05/30/18 05/30/18 5/325 MG] Trazodone HCl 50 mg PO QPM 05/30/18 05/30/18 Previous Rx's Medication Instructions Recorded Albuterol Sulfate [Ventolin Hfa] 1 puff IH Q6H #1 hfa.aer.ad 05/20/18 Allergies Allergy/AdvReac Type Severity Reaction Status Date / Time hydrocodone [From Vicodin] AdvReac Itching Verified 05/18/18 12:11 Constitutional: Denies: fever, chills Cardiovascular: Reports: chest pain, dyspnea on exertion, edema. Denies: palpitations, syncope, paroxysmal nocturnal dyspnea Respiratory: Reports: dyspnea. Denies: cough, wheezes, hemoptysis, sputum production Gastrointestinal: Denies: abdominal pain, nausea, vomiting, diarrhea Genitourinary: Denies: urgency, dysuria, frequency Musculoskeletal: Denies: back pain, neck pain Integumentary: Denies: rash Past Medical History - Past Medical History Medical history: Reports: CHF, coronary artery disease, diabetes, hyperlipidemia, hypertension, kidney stones, RA, thyroid disease, other Surgical history: Reports: thyroidectomy, other Psychiatric history: Reports: no psych history - Social History Smoking Status: Former smoker Smokeless Tobacco Status: No Alcohol use: Reports: none Drug use: Reports: none Physical Exam - General Limitations: no limitations General appearance: alert, in no apparent distress Course Vital Signs Temperature 97.7 F 12/24/18 13:46 Pulse Rate 80 12/24/18 13:46 Respiratory Rate 18 12/24/18 13:46 Blood Pressure 0/0 12/24/18 13:46 O2 Sat by Pulse Oximetry 94 12/24/18 13:46 Temperature 97.7 F 12/24/18 13:46 Pulse Rate 76 12/24/18 14:22 Respiratory Rate 16 12/24/18 14:22 Blood Pressure 135/94 12/24/18 14:22 O2 Sat by Pulse Oximetry 97 12/24/18 14:24 Oxygen Delivery Oxygen Delivery Room Air Medical Decision Making - Lab Data Result diagrams: 12/24/18 14:39 12/24/18 14:39 Lab Results 12/24/18 12/24/18 12/24/18 Range/Units 14:39 14:39 14:39 WBC 12.1 H (4.3-11.1) K/mcL RBC 5.10 (4.19-5.50) M/mcL Hgb 14.5 (12.9-16.9) g/dL Hct 46.0 (37.5-50.1) % MCV 90.2 (83.0-100.0) fL MCH 28.4 (28.0-33.3) pg MCHC 31.5 L (31.6-35.5) g/dL RDW 14.9 H (11.5-14.5) % Plt Count 196 (140-400) K/mcL MPV 11.8 (9.4-12.4) fL Immature Gran % 2.6 (0-4) % Seg Neutrophils % 57.9 % Lymphocytes % 26.6 % Monocytes % 9.3 % Eosinophils % 2.7 % Basophils % 0.9 % Neutrophils # 7.0 (1.6-8.9) K/mcL Lymphocytes # 3.2 (0.6-4.6) K/mcL Monocytes # 1.1 (0.0-1.3) K/mcL Eosinophils # 0.3 (0.0-0.6) K/mcL Basophils # 0.1 (0.0-0.2) K/mcL D-Dimer 334 (0-500) ng/mLFEU Sodium (136-145) mEq/L Potassium (3.5-5.1) mEq/L Chloride (98-107) mEq/L Carbon Dioxide (23-29) mEq/L BUN (8-23) mg/dL Creatinine (0.70-1.30) mg/dL Est GFR ( Amer) (> 60) Est GFR (Non-Af Amer) (> 60) BUN/Creatinine Ratio (6-26) Glucose (70-105) mg/dL Calculated Osmolality (280-300) Calcium (8.6-10.3) mg/dL Troponin I (< 0.04) ng/mL B-Natriuretic Peptide 35 (Less than 100) pg/mL 12/24/18 Range/Units 14:39 WBC (4.3-11.1) K/mcL RBC (4.19-5.50) M/mcL Hgb (12.9-16.9) g/dL Hct (37.5-50.1) % MCV (83.0-100.0) fL MCH (28.0-33.3) pg MCHC (31.6-35.5) g/dL RDW (11.5-14.5) % Plt Count (140-400) K/mcL MPV (9.4-12.4) fL Immature Gran % (0-4) % Seg Neutrophils % % Lymphocytes % % Monocytes % % Eosinophils % % Basophils % % Neutrophils # (1.6-8.9) K/mcL Lymphocytes # (0.6-4.6) K/mcL Monocytes # (0.0-1.3) K/mcL Eosinophils # (0.0-0.6) K/mcL Basophils # (0.0-0.2) K/mcL D-Dimer (0-500) ng/mLFEU Sodium 138 (136-145) mEq/L Potassium 3.9 (3.5-5.1) mEq/L Chloride 102 (98-107) mEq/L Carbon Dioxide 24 (23-29) mEq/L BUN 16 (8-23) mg/dL Creatinine 0.66 L (0.70-1.30) mg/dL Est GFR ( Amer) > 60 (> 60) Est GFR (Non-Af Amer) > 60 (> 60) BUN/Creatinine Ratio 24 (6-26) Glucose 177 H (70-105) mg/dL Calculated Osmolality 292 (280-300) Calcium 9.8 (8.6-10.3) mg/dL Troponin I < 0.03 (< 0.04) ng/mL B-Natriuretic Peptide (Less than 100) pg/mL Attestation Statement - Attestation Attestation: I reviewed the residents documentation and agree with the residents assessment and plan of care. I have personally had face to face time with the patient. (Brief History, Brief Exam, and MDM) I personally supervised and was present for the concepcion/critical portions of the following procedures completed by the resident: EKG 73 year old male presents to the ED with chest discomfort which is silamir to his episode of chest discomfort which oehrwise required a cardiac stent at that time. Patinet states that nitro typically gives him a headache. chest pain free at this time, troponin negative, and baseline EKG. We have treated with ASA and will admit to medicine
[2018-12-24] MEDS ORDERED: Ondansetron ODT 4 MG TAB.RAPDIS SL PRN (16:21)
[2018-12-24] MEDS ORDERED: Naloxone 0.4 MG/ML INJ IVP PRN (16:21)
[2018-12-24] MEDS ORDERED: Dextrose Gel 15 GM/37.5 ML TUBE PO PRN ×2 (16:24)
[2018-12-24] MEDS ORDERED: Ipratropium/Albuterol Neb 3 ML IH PRN (16:24)
[2018-12-24] MEDS ORDERED: *HR* Dextrose 50 % in Water (Syg) 50 ML SYRINGE IVP PRN (16:24)
[2018-12-24] MEDS ORDERED: D5% in Water 1,000 ML IVC PRN (16:24)
--- NOTE | 2018-12-24 16:56 | Internal Med History&Physical ---
Date of Encounter: 12/24/18 Time of Encounter: 16:51 Internal Medicine - H&P: HPI Chief complaint: chest pain Admitted From: Home Plans for Post Hospital Care: Home History of present illness: Mr. Hatfield is a 73 year old male PMH of jersey's esophagous, DM, CAD with stent placement in 2005, HTN, HLD and hypothyroidism. Patient presented to the ED due to chest pain. Patient reported yesterday while he has walking he started having this dull, 5/10 retro-sternal chest pain, lasting more than 30 minutes. Denies radiation of the pain, denies alleviated or aggravating factors. Reported taking 2 nitroglycerin at home today but the pain did not improved and he decided to come to the ED to be evaluated. He reported he has a Hx of Jersey's esophagus, but denies having GERD like symptoms for a long time, and had an EGD done about a month ago without any significant change. Past Med Surg Social Fam HX - Past Medical History Medical history: CHF, coronary artery disease, diabetes, hyperlipidemia, hypertension, kidney stones, RA, thyroid disease, other Additional medical history: CAD. Renal and ureteric calculus. BPH. sleep apnea. cluster headaches. hiatal hernia Psychiatric history: no psych history - Past Surgical History Surgical History: thyroidectomy, other Additional surgical history: ureteroscopic stone extraction. TURP. Left knee. right knee. right shoulder. left shoulder. colonoscopy. EGD. medtronic device for headaches. right thyroidectomy - Social History Smoking Status: Former smoker Smokeless Tobacco Status: No Alcohol use: none Drug use: none - Family History Father Daughter Hx Family Cardiac Disorders: Yes (HTN) Mother Hx Family Endocrine Disorder: Yes (DM) Internal Medicine - H&P: Meds Levothyroxine [Synthroid] 75 mcg PO DAILY 08/07/15 [History] metFORMIN [Glucophage] 500 mg PO BID 08/07/15 [History] Aspirin [Lo-Dose Aspirin EC] 81 mg PO HS 09/05/16 [History] Nitroglycerin [Nitrostat] 0.4 mg SL Q5M PRN 09/05/16 [History] Atorvastatin [Lipitor] 40 mg PO HS 11/08/17 [History] Losartan/Hydrochlorothiazide [Hyzaar 100-25 Tablet] 1 tab PO DAILY 11/08/17 [History] Psyllium Husk [Daily Fiber] 2 cap PO BID 11/08/17 [History] Lansoprazole [Prevacid] 15 mg PO DAILY 05/30/18 [History] Omeprazole [PriLOSEC] 40 mg PO BID 12/24/18 [History] Allergy/AdvReac Type Severity Reaction Status Date / Time hydrocodone [From Vicodin] AdvReac Itching Verified 05/18/18 12:11 All Systems PM: A 10-system review of systems was performed and is negative for pertinent findings except as documented above in the HPI. - Constitutional Constitutional: no chills, no weakness - EENT Nose, mouth and throat: no dental pain - Cardiovascular Cardiovascular ROS IM: chest pain, no dyspnea, no dyspnea on exertion, no lightheadedness, no orthopnea, no palpitations - Respiratory Respiratory: no cough, no wheezing, no chest congestion, no excessive phlegm production - Gastrointestinal Gastrointestinal: no abdominal pain - Genitourinary Genitourinary ROS male: no dysuria, no urinary frequency, no urinary urgency - Musculoskeletal Musculoskeletal ROS IM: no atrophy, no back pain - Integumentary Integumentary IM: no erythema - Neurological Neurological ROS: no headache(s) - Psychiatric Psychiatric: no hopelessness - Endocrine Endocrine IM: no cold intolerance, no excessive sweating - Hematologic/Lymphatic Hematologic/Lymphatic: no lymphadenopathy - Allergic/Immunologic Allergic/Immunologic: no GI upset with certain foods - Constitutional Vitals: Temp Pulse Resp BP Pulse Ox 97.7 F 76 16 116/89 96 12/24/18 13:46 12/24/18 15:54 12/24/18 15:54 12/24/18 15:54 12/24/18 15:54 Exam: Vitals: reviewed General: Alert and oriented x4. In mild distress due to chest pain Skin:Normal color, no rash, no lesions. HEENT: EOM, pupils equal, round and reactive. Cardiovascular: RRR, normal S1 & S2, no rubs, murmurs or gallops. Lungs: CTA b/l, no wheezes or crackles. Abdomen: Soft, non-tender, no rigidity. Extremities: No deformity, no edema or tenderness, no joint swelling or clubbing. Neurological: Normal cognition and motor skills. Rest of the physical exam is non contributory Internal Med - H&P Results - Labs CBC & Chem 7: 12/24/18 14:39 12/24/18 14:39 Labs: Short CBC 12/24/18 Range/Units 14:39 WBC 12.1 H (4.3-11.1) K/mcL Hgb 14.5 (12.9-16.9) g/dL Hct 46.0 (37.5-50.1) % Plt Count 196 (140-400) K/mcL Neutrophils # 7.0 (1.6-8.9) K/mcL BMP 12/24/18 14:39 Sodium 138 Potassium 3.9 Chloride 102 Carbon Dioxide 24 BUN 16 Creatinine 0.66 L Glucose 177 H Calcium 9.8 Cardiac Enzymes 12/24/18 Range/Units 14:39 Troponin I < 0.03 (< 0.04) ng/mL - Impressions ITS Impressions Chest X-Ray 12/24/18 14:20 IMPRESSION: No acute process. D/ / 12/24/2018 14:46:53 Tone Costello MD / [facility] Interpreting Provider: Tone Costello MD - Diagnostic Studies Chest x-ray Status: image reviewed by me (no acute abnormalities. ) - Assessment and Plan (1) Chest pain Current Visit: Yes Status: Acute Assessment and plan: patient presenting with retro-sternal chest pain lasting >30 minutes, not alleviated ny nitro. Plan serial trops TTE ordered cardiology consulted, patient had a stress test done about 7 month ago for similar symptoms. started on low dose bb aspirin 81mg/PO daily nitroglycerin 0.5mg SubL Q5min x3. lipid panel Qualifiers: Chest pain type: unspecified Qualified Code(s): R07.9 - Chest pain, unspecified (2) HLD (hyperlipidemia) Current Visit: Yes Status: Chronic Assessment and plan: Continue atorvastatin. Qualifiers: Hyperlipidemia type: unspecified Qualified Code(s): E78.5 - Hyperlipidemia, unspecified (3) Hypothyroidism Current Visit: Yes Status: Chronic Assessment and plan: On levothyroxine 75 mcg/po daily Qualifiers: Hypothyroidism type: unspecified Qualified Code(s): E03.9 - Hypothyroidism, unspecified (4) COPD (chronic obstructive pulmonary disease) Current Visit: No Status: Chronic Assessment and plan: chest is clear to auscultation. started on bronchodilators Q4RT PRN. Qualifiers: COPD type: unspecified COPD Qualified Code(s): J44.9 - Chronic obstructive pulmonary disease, unspecified (5) Berrios's esophagus Current Visit: No Status: Chronic Assessment and plan: reported having EGD about 1 month ago which was unremarkable. continue PPIs, home dose. Qualifiers: Berrios's esophagus type: with dysplasia of unspecified degree Qualified Code(s): K22.719 - Berrios's esophagus with dysplasia, unspecified; K22.71 - Berrios's esophagus with dysplasia (6) CAD (coronary artery disease) Current Visit: No Status: Chronic Assessment and plan: On aspirin 81mg/PO daily Qualifiers: Coronary Disease-Associated Artery/Lesion type: [place] artery [place] vs. transplanted heart: [place] heart Associated angina: angina presence unspecifie d Qualified Code(s): I25.10 - Atherosclerotic heart disease of [place] coronary artery without angina pectoris (7) Diabetes mellitus Current Visit: No Status: Chronic Assessment and plan: carbs controlled diet. lispro low dose sliding scale ac. Qualifiers: Diabetes mellitus type: type 2 Diabetes mellitus ad terminal makeup operator insulin use: without ad terminal makeup operator use Diabetes mellitus complication status: without complication Qualified Code(s): E11.9 - Type 2 diabetes mellitus without complications (8) HTN (hypertension) Current Visit: No Status: Chronic Assessment and plan: patient started on carvedilol. consider resuming home medications when verified by the pharmacy. Qualifiers: Hypertension type: essential hypertension Qualified Code(s): I10 - Essential (primary) hypertension (9) PATRICK (obstructive sleep apnea) Current Visit: No Status: Chronic - Time Spent With Patient Total time spent is greater than 50% in coordination of care (as documented) at patient's floor/unit and/or counseling patient:
[2018-12-24 17:24] LABS: Bilirubin,Urine Negative (Negative); Blood,Urine Negative (Negative); Clarity,Urine Clear (Clear); Color,Urine Yellow (Yellow); Glucose,Urine (UA) Normal (Normal); Ketones,Urine Negative (Negative); Leukocyte Esterase,Urine Negative (Negative); Nitrite,Urine Negative (Negative); PH,Urine 5.5 pH Units (5.0-8.0); Protein,Urine Negative (Neg-Trace); Specific Gravity,Urine 1.021 (1.010-1.025); Urobilinogen,Urine Normal (Normal)
[2018-12-24] MEDS: Insulin LISPRO 300 UNITS/3 ML VIAL SQ SCH (18:35)
[2018-12-24] MEDS: *HR* Heparin 5,000 UNIT/ML VIAL SQ SCH (18:40)
[2018-12-24] MEDS ORDERED: Perflutren Lipid Microsphere 1.3 ML in 0.9 % Sodium Chloride 8.7 ML IVP ONE (21:13)
[2018-12-24] MEDS: traZODone 50 MG TABLET PO SCH (21:59)
[2018-12-25] MEDS: Insulin LISPRO 300 UNITS/3 ML VIAL SQ SCH ×4 (00:34→17:46)
[2018-12-25 01:48] LABS: Basophils # 0.1 K/mcL (0.0-0.2); Basophils % 0.6 %; Eosinophils # 0.4 K/mcL (0.0-0.6); Hematocrit 43.9 % (37.5-50.1); Hemoglobin 14.2 g/dL (12.9-16.9); Immature Granulocytes % 3.1 % (0-4); Lymphocytes # 3.1 K/mcL (0.6-4.6); Lymphocytes % 28.9 %; Mean Corpuscular HGB Conc 32.3 g/dL (31.6-35.5); Mean Corpuscular Hemoglobin 28.8 pg (28.0-33.3); Mean Platelet Volume 11.6 fL (9.4-12.4); Monocytes % 9.2 %; Neutrophils # 5.9 K/mcL (1.6-8.9); Platelet Count 179 K/mcL (140-400); Red Blood Count 4.93 M/mcL (4.19-5.50); Segmented Neutrophils % 54.2 %; White Blood Count 10.8 K/mcL (4.3-11.1)
[2018-12-25 02:02] LABS: BUN/Creatinine Ratio 21 (6-26); Blood Urea Nitrogen 17 mg/dL (8-23); Calcium 9.6 mg/dL (8.6-10.3); Carbon Dioxide 25 mEq/L (23-29); Chloride 101 mEq/L (98-107); Chol/HDL Ratio 5.5 (0-4.9); Cholesterol 110 mg/dL (< 200); Glucose 161 mg/dL (70-105); HDL Cholesterol 20 mg/dL (40-59); Magnesium 1.6 mg/dL (1.6-2.6); Osmolality,Calculated 289 (280-300); Potassium 3.5 mEq/L (3.5-5.1); Sodium 137 mEq/L (136-145); Triglycerides 645 mg/dL (< 150); eGFR For African Americans > 60 (> 60); eGFR For Non-African Americans > 60 (> 60)
[2018-12-25 02:13] LABS: Platelet Estimate Normal (Normal)
[2018-12-25] MEDS: *HR* Heparin 5,000 UNIT/ML VIAL SQ SCH ×2 (06:50→17:41)
--- NOTE | 2018-12-25 09:33 | Cardiology Consult Note ---
<Mikki Buckner - Last Filed: 12/25/18 11:35> Date of Encounter: 12/25/18 Time of Encounter: 10:00 Assessment and Plan (1) Chest pain Current Visit: Yes Status: Acute Differential diagnosis favors gastrointestinal cause, specifically gastritis. Cardiac cause is unlikely due to negative cardiac testing and labs. -Recent EGD showed Berrios's esophagus and gastritis -Have put patient on GI cocktail. -Echocardiogram ordered. -Considering cardiac catheterization tomorrow; NPO after midnight. Qualifiers: Chest pain type: unspecified Qualified Code(s): R07.9 - Chest pain, unspecified (2) HTN (hypertension) Current Visit: No Status: Chronic Blood pressure today was 170/98. He is on Hyzaar 100-25 at home. -Continue Coreg at current dose at this time. -Will continue to monitor blood pressures. Qualifiers: Hypertension type: essential hypertension Qualified Code(s): I10 - Essential (primary) hypertension (3) HLD (hyperlipidemia) Current Visit: Yes Status: Chronic Current home medications is atorvastatin 40 mg. He is not maximized on statin therapy. -Have ordered LFTs to assess liver function -If normal LFTs, plan to increase atorvastatin to 80 mg. Qualifiers: Hyperlipidemia type: unspecified Qualified Code(s): E78.5 - Hyperlipidemia, unspecified Discussion w patient/family: The assessment and plan as outlined above was discussed with the patient and/or family members who expressed understanding and agreement. All questions were answered. Thank you for involving us in the care of your patient. Please call with any questions. History of Present Illness Consult date: 12/25/18 Requesting physician: Tao Segal Consult reason: hx CAD, presenting with chest pain. Negative stress test 7 months ago Chief complaint: Chest pain History of present illness: Mr. Hatfield is a 73 year old male presenting for chest pain in context of CAD with 1 stent in RCA placed in 2005, HTN, and DM. Sunday evening, he began to experience substernal chest pain which kept him awake all night. He describes this as a pressure-like pain which was 7/10 at its worst. He finds that he cannot take a deep breath as this hurts. He is unsure if it radiated down his arm as both of his shoulders hurt at baseline. Around 0900 yesterday, he called his two daughters who are both nurses and they recommended he take his sublingual nitroglycerin tablet. The pain did not improve with this, so they told him ten minutes later to take another, which also brought no improvement. At this point, his daughters came home and brought him to the ED around [id number]. At ED, BNP was in 300s and PE was considered ruled out. He has had negative troponins x2, a nonischemic electrocardiogram, and a normal CXR. He was given a dose of morphine for pain. He was also given ASA. This morning around 0400, he felt like something was lying on his chest. A nurse gave him something, but he was not sure what. He felt somewhat better after taking the medication. Review of MAR shows more than one medication given around 0650, Prilosec and Synthroid. He has had no recent trauma or illnesses. He lives alone after being a few years ago and has had no recent sick contacts. He is a former smoker with approximately 38 pack-year history. He does have PATRICK and possibly has sub- optimal adherence to CPAP. He also has a history of Berrios's esophagus; EGD one month ago showed no significant changes. He had a brief hospitalization in observation for similar symptoms in late April 2018. On that visit, he was found to have an elevated D-dimer. CTA was negative. EKG showed NSR with occasional PVCs. CXR showed no fluid congestion and he had negative troponins. Stress test was negative for ischemia or infarct. Echocardiogram showed EF of 55% and mild concentric LVH, mild LV diastolic dysfunction, normal RV structure and function, normal valvular function. No evidence was found of pulmonary hypertension. Past Med Surg Social Fam HX - Past Medical History Medical history: CHF, coronary artery disease, diabetes, hyperlipidemia, hypertension, kidney stones, RA, thyroid disease, other Additional medical history: CAD. Renal and ureteric calculus. BPH. sleep apnea. cluster headaches. hiatal hernia Psychiatric history: no psych history - Past Surgical History Surgical History: thyroidectomy, other Additional surgical history: ureteroscopic stone extraction. TURP. Left knee. right knee. right shoulder. left shoulder. colonoscopy. EGD. medtronic device for headaches. right thyroidectomy - Social History Smoking Status: Former smoker Smokeless Tobacco Status: No Alcohol use: none Drug use: none - Family History Father Daughter Hx Family Cardiac Disorders: Yes (HTN) Mother Hx Family Endocrine Disorder: Yes (DM) Medications and Allergies Levothyroxine [Synthroid] 75 mcg PO DAILY 08/07/15 [History] metFORMIN [Glucophage] 500 mg PO BID 08/07/15 [History] Aspirin [Lo-Dose Aspirin EC] 81 mg PO HS 09/05/16 [History] Nitroglycerin [Nitrostat] 0.4 mg SL Q5M PRN 09/05/16 [History] Atorvastatin [Lipitor] 40 mg PO HS 11/08/17 [History] Losartan/Hydrochlorothiazide [Hyzaar 100-25 Tablet] 1 tab PO DAILY 11/08/17 [History] Psyllium Husk [Daily Fiber] 2 cap PO BID 11/08/17 [History] Omeprazole [PriLOSEC] 40 mg PO BID 12/24/18 [History] Allergy/AdvReac Type Severity Reaction Status Date / Time hydrocodone [From Vicodin] AdvReac Itching Verified 12/25/18 11:00 All Systems Review: The remainder of the systems were reviewed and are negative - Constitutional Constitutional: no fatigue, no headache(s) - EENT Eyes: no blurred vision - Cardiovascular Cardiovascular: chest pain at rest, dyspnea on exertion, no diaphoresis, no dyspnea at rest, no irregular heart rhythm, no radiating jaw, neck or arm pain, no orthopnea, no palpitations - Respiratory Respiratory: cough (described as "tight"), no wheezing - Gastrointestinal Gastrointestinal: diarrhea, no nausea - Genitourinary Genitourinary: no dysuria - Musculoskeletal Musculoskeletal: other (neck pain, shoulder pain) - Integumentary Integumentary: no unusual bruising - Neurological Neurological: no numbness, no syncope, no tingling - Psychiatric Psychiatric: other (stressors through work lately) - Hematological/Lymphatic Hematologic/Lymphatic: no easy bleeding, no easy bruising Physical Examination Vital Signs, Last 4 Hours Temp Pulse Resp BP Pulse Ox 12/25/18 07:48 97.6 F 69 16 170/98 94 Other: GENERAL: pleasant, awake, oriented x3, sits on side of bed EYES: anicteric, clear sclerae, pupils equal and reactive to light ENT: moist mucosa NECK: normal carotid pulses, no carotid bruits CV: regular rate and rhythm, normal S1 and S2, no murmurs. RESPIRATORY: clear to auscultation bilaterally, no wheezes, rhonchi, or rales GI: soft, nontender, nondistended. Normal bowel sounds. No aortic bruits heard EXTREMITIES: mild nonpitting edema, peripheral pulses 2+/4, acyanotic Results 12/25/18 01:33 12/25/18 01:33 Lab Results 12/24/18 12/24/18 12/24/18 14:39 14:39 14:39 WBC 12.1 H Hgb 14.5 Hct 46.0 Plt Count 196 D-Dimer 334 Sodium Potassium Chloride Carbon Dioxide BUN Creatinine Glucose Calcium Magnesium Troponin I B-Natriuretic Peptide 35 12/24/18 12/24/18 12/25/18 14:39 20:16 01:33 WBC Hgb Hct Plt Count D-Dimer Sodium 138 Potassium 3.9 Chloride 102 Carbon Dioxide 24 BUN 16 Creatinine 0.66 L Glucose 177 H Calcium 9.8 Magnesium Troponin I < 0.03 < 0.03 < 0.03 B-Natriuretic Peptide 12/25/18 12/25/18 01:33 01:33 WBC 10.8 Hgb 14.2 Hct 43.9 Plt Count 179 D-Dimer Sodium 137 Potassium 3.5 Chloride 101 Carbon Dioxide 25 BUN 17 Creatinine 0.81 Glucose 161 H Calcium 9.6 Magnesium 1.6 Troponin I B-Natriuretic Peptide Consult Discharge Plan - Plan Referrals: Osmany Berrios DO [Primary Care Provider] - <Shiela Page - Last Filed: 12/25/18 12:56> Date of Encounter: 12/25/18 - Attending Attestation I examined this patient and my medical decision-making was reviewed with the Resident Physician. I agree with the documented findings, disposition and treatment plan as described. Mr. Hatfield presents with atypical chest discomfort somewhat constant since Sunday. Serial troponins negative. No ischemic ECG findings. Has known CAD, prior PCI RCA 2005. Last seen as outpatient by [facility] 11/15/2018. Had an EGD recently demonstrating esophagitis and gastritis. Recommend GI cocktail and continuing PPI. Will obtain echo. If symptoms persist despite GI treatment, have considered proceeding with C. The R/B/A of LHC were discussed with the patient and his 2 daughters present in the room. He expressed understanding and has agreed to proceed if symptoms persist overnight. Assessment and Plan Discussion w patient/family: The assessment and plan as outlined above was discussed with the patient and/or family members who expressed understanding and agreement. All questions were answered. Thank you for involving us in the care of your patient. Please call with any questions. History of Present Illness History of present illness: Mr. Hatfield is a 73 year old male All Systems Review: The remainder of the systems were reviewed and are negative Physical Examination Vital Signs, Last 4 Hours Temp Pulse Resp BP Pulse Ox 12/25/18 11:03 97.9 F 77 16 119/75 92 Results 12/25/18 01:33 12/25/18 01:33 Lab Results 12/24/18 12/24/18 12/24/18 14:39 14:39 14:39 WBC 12.1 H Hgb 14.5 Hct 46.0 Plt Count 196 D-Dimer 334 Sodium Potassium Chloride Carbon Dioxide BUN Creatinine Glucose Calcium Magnesium AST ALT Troponin I B-Natriuretic Peptide 35 12/24/18 12/24/18 12/25/18 14:39 20:16 01:33 WBC Hgb Hct Plt Count D-Dimer Sodium 138 Potassium 3.9 Chloride 102 Carbon Dioxide 24 BUN 16 Creatinine 0.66 L Glucose 177 H Calcium 9.8 Magnesium AST ALT Troponin I < 0.03 < 0.03 < 0.03 B-Natriuretic Peptide 12/25/18 12/25/18 01:33 01:33 WBC 10.8 Hgb 14.2 Hct 43.9 Plt Count 179 D-Dimer Sodium 137 Potassium 3.5 Chloride 101 Carbon Dioxide 25 BUN 17 Creatinine 0.81 Glucose 161 H Calcium 9.6 Magnesium 1.6 AST 16 ALT 13 Troponin I B-Natriuretic Peptide
[2018-12-25] MEDS: Aspirin Enteric Coated 81 MG Tablet PO SCH (10:01)
[2018-12-25] MEDS ORDERED: GI Cocktail 40 ML EACH PO ONE (11:29)
[2018-12-25 12:05] LABS: Alanine Aminotransferase 13 Units/L (7-52); Aspartate Amino Transferase 16 Units/L (13-39)
[2018-12-25] MEDS ORDERED: Nitroglycerin 0.4 MG TAB.SUBL SL PRN (17:11)
--- NOTE | 2018-12-25 17:17 | Internal Med Progress Note ---
Hospitalist Progress Note - Encounter Date of Encounter: 12/25/18 Time of Encounter: 10:00 - Subjective Interval History: Patient was seen and examined at bedside denies any chest pain or shortness of breath-yesterday and plan with the patient verbalizes understanding. - Exam Vitals: Temp Pulse Resp BP Pulse Ox 97.7 F 68 16 142/82 90 12/25/18 15:30 12/25/18 15:30 12/25/18 15:30 12/25/18 15:30 12/25/18 15:30 Exam: Vitals: reviewed General: Alert and oriented x4. In mild distress due to chest pain Skin:Normal color, no rash, no lesions. HEENT: EOM, pupils equal, round and reactive. Cardiovascular: RRR, normal S1 & S2, no rubs, murmurs or gallops. Lungs: CTA b/l, no wheezes or crackles. Abdomen: Soft, non-tender, no rigidity. Extremities: No deformity, no edema or tenderness, no joint swelling or clubbing. Neurological: Normal cognition and motor skills. Rest of the physical exam is non contributory - Assessment and Plan (1) Chest pain Current Visit: Yes Status: Acute Assessment and Plan: patient presenting with retro-sternal chest pain lasting >30 minutes, not alleviated ny nitro. Plan serial trops TTE ordered cardiology consulted, patient had a stress test done about 7 month ago for similar symptoms. started on low dose bb aspirin 81mg/PO daily nitroglycerin 0.5mg SubL Q5min x3. lipid panel 12/25 Has been chest pain-free Troponins negative 3 Continue beta nayely Aspirin Nitroglycerin as needed Increase statin Cardiology consulted patient to be nothing by mouth after midnight for possible In the a.m. (2) HTN (hypertension) Current Visit: No Status: Chronic Assessment and Plan: Continue carvedilol (3) Diabetes mellitus Current Visit: No Status: Chronic Assessment and Plan: carbs controlled diet. lispro low dose sliding scale ac. (4) CAD (coronary artery disease) Current Visit: No Status: Chronic Assessment and Plan: On aspirin 81mg/PO daily (5) PATRICK (obstructive sleep apnea) Current Visit: No Status: Chronic Assessment and Plan: CPAP as needed (6) Berrios's esophagus Current Visit: No Status: Chronic Assessment and Plan: reported having EGD about 1 month ago which was unremarkable. continue PPIs, home dose. (7) COPD (chronic obstructive pulmonary disease) Current Visit: No Status: Chronic Assessment and Plan: Does not appear to be in exacerbation continue bronchodilators Q4RT PRN. (8) HLD (hyperlipidemia) Current Visit: Yes Status: Chronic Assessment and Plan: Continue atorvastatin. Increased to 80 mg (9) Hypothyroidism Current Visit: Yes Status: Chronic Assessment and Plan: On levothyroxine 75 mcg/po daily - Time Spent with Patient Total time spent is greater than 50% in coordination of care (as documented) at patient's floor/unit and/or counseling patient: Internal Medicine: Result - Labs CBC & Chem 7: 12/25/18 01:33 12/25/18 01:33 Labs: Short CBC 12/25/18 Range/Units 01:33 WBC 10.8 (4.3-11.1) K/mcL Hgb 14.2 (12.9-16.9) g/dL Hct 43.9 (37.5-50.1) % Plt Count 179 (140-400) K/mcL Neutrophils # 5.9 (1.6-8.9) K/mcL BMP 12/25/18 01:33 Sodium 137 Potassium 3.5 Chloride 101 Carbon Dioxide 25 BUN 17 Creatinine 0.81 Glucose 161 H Calcium 9.6 Cardiac Enzymes 12/24/18 12/25/18 Range/Units 20:16 01:33 Troponin I < 0.03 < 0.03 (< 0.04) ng/mL Liver Function 12/25/18 Range/Units 01:33 AST 16 (13-39) Units/L ALT 13 (7-52) Units/L Urine 12/24/18 Range/Units 17:04 Urine Color Yellow (Yellow) Urine Clarity Clear (Clear) Urine pH 5.5 (5.0-8.0) pH Units Ur Specific Leonardo 1.021 (1.010-1.025) Urine Protein Negative (Neg-Trace) mg/dL Urine Glucose (UA) Normal (Normal) mg/dL - ABG Interpretation ABG results: PT/INR, D-dimer D-Dimer 334 ng/mLFEU (0-500) 12/24/18 14:39 - Impressions Impressions Chest X-Ray 12/24/18 14:20 IMPRESSION: No acute process. D/ / 12/24/2018 14:46:53 Tone Costello MD / beayer Interpreting Provider: Tone Costello MD Echocardiogram 12/24/18 16:25 Impressions: LVEF 60-65%. Normal LV chamber size and function. Mild concentric left ventricular hypertrophy. Mild left ventricular diastolic dysfunction. Normal right ventricular structure and function. Unable to estimate RVSP due to lack of TR jet. No significant valvular dysfunction. Left Ventricular Wall Motion: Rest Echo Findings All wall segments showed normal motion. Findings: Study Quality * Technically adequate exam. ECG Findings * Normal sinus rhythm. Left Ventricle * LVEF 60-65%. * Normal LV chamber size and function. * Mild concentric left ventricular hypertrophy. * Mild left ventricular diastolic dysfunction. Right Ventricle * Normal right ventricular structure and function. Left Atrium * Mildly dilated left atrium. Right Atrium * Mildly dilated right atrium. Interatrial Septum * Interatrial septum not well evaluated. Aortic Valve * Trileaflet aortic valve. * Mildly sclerotic aortic valve leaflets. * No aortic regurgitation. * No aortic stenosis. Mitral Valve * Mild mitral annular calcification * Trace mitral regurgitation. * No mitral stenosis. Tricuspid Valve * Normal tricuspid valve structure and function. * No tricuspid regurgitation. * Unable to estimate RVSP due to lack of TR jet. Pulmonic Valve * Pulmonic valve is not well visualized. * Trace pulmonic regurgitation. Aorta * Normally sized aortic root. Pericardium * The pericardium appears normal. IVC * The IVC is not well evaluated. Pulmonary Artery * Normal visualized portions of the main pulmonary artery. Consult Discharge Plan - Plan Referrals: Osmany Berrios DO [Primary Care Provider] - (1) Chest pain Qualifiers: Chest pain type: unspecified Qualified Code(s): R07.9 - Chest pain, unspecified (2) HTN (hypertension) Qualifiers: Hypertension type: essential hypertension Qualified Code(s): I10 - Essential (primary) hypertension (3) Diabetes mellitus Qualifiers: Diabetes mellitus type: type 2 Diabetes mellitus nursing home insulin use: without adjunct faculty for medical terminology use Diabetes mellitus complication status: without complication Qualified Code(s): E11.9 - Type 2 diabetes mellitus without complications (4) CAD (coronary artery disease) Qualifiers: Coronary Disease-Associated Artery/Lesion type: sam[place] artery [place] vs. transplanted heart: samish heart Associated angina: angina presence unspecified Qualified Code(s): I25.10 - Atherosclerotic heart disease of samish coronary artery without angina pectoris (6) Berrios's esophagus Qualifiers: Berrios's esophagus type: with dysplasia of unspecified degree Qualified Code(s): K22.719 - Berrios's esophagus with dysplasia, unspecified; K22.71 - Berrios's esophagus with dysplasia (7) COPD (chronic obstructive pulmonary disease) Qualifiers: COPD type: unspecified COPD Qualified Code(s): J44.9 - Chronic obstructive pulmonary disease, unspecified (8) HLD (hyperlipidemia) Qualifiers: Hyperlipidemia type: unspecified Qualified Code(s): E78.5 - Hyperlipidemia, unspecified (9) Hypothyroidism Qualifiers: Hypothyroidism type: unspecified Qualified Code(s): E03.9 - Hypothyroidism, unspecified
[2018-12-25] MEDS ORDERED: NON-FORMULARY MEDICATION 1 EACH EACH (Omeprazole [Prilosec] 40 MG) PO SCH (21:00)
[2018-12-25] MEDS: traZODone 50 MG TABLET PO SCH (21:24)
[2018-12-26] MEDS: Insulin LISPRO 300 UNITS/3 ML VIAL SQ SCH ×3 (00:25→12:51)
[2018-12-26] MEDS: *HR* Heparin 5,000 UNIT/ML VIAL SQ SCH (05:21)
--- NOTE | 2018-12-26 08:36 | Event Note ---
Date of Encounter: 12/26/18 Time of Encounter: 08:30 - Cardiology Event Note Laboratory Tests 12/24/18 12/24/18 12/24/18 14:39 14:39 14:39 Hgb Hct D-Dimer 334 Creatinine Est GFR (Non-Af Amer) Troponin I < 0.03 B-Natriuretic Peptide 35 Triglycerides LDL Cholesterol, Calc 12/24/18 12/25/18 12/25/18 20:16 01:33 01:33 Hgb 14.2 Hct 43.9 D-Dimer Creatinine Est GFR (Non-Af Amer) Troponin I < 0.03 < 0.03 B-Natriuretic Peptide Triglycerides LDL Cholesterol, Calc 12/25/18 01:33 Hgb Hct D-Dimer Creatinine 0.81 Est GFR (Non-Af Amer) > 60 Troponin I B-Natriuretic Peptide Triglycerides 645 H LDL Cholesterol, Calc TNP Currently chest pain-free. Discussed and reviewed with patient/family potential for left heart catheterization, patient and family are agreeable to proceed. All questions answered. Discussed and reviewed with Dr. Lee and Dr. Campbell. HAS-BLED Score - Score Elderly: Age>65 years Medication usage predisposing to bleeding: Antiplatelet agents, NSAIDs, Anticoagulants Score: 2
[2018-12-26] MEDS ORDERED: Losartan/HCTZ 50-12.5 TABLET PO SCH (09:00)
[2018-12-26] MEDS: Aspirin Enteric Coated 81 MG Tablet PO SCH (09:54)
--- NOTE | 2018-12-26 10:34 | Pre-Sedation Evaluation ---
Pre-sedation evaluation - Pre-sedation checklist Date of procedure: 12/26/18 Procedure: cath Recent Vitals: Last Vital Signs Temp 97.8 F 12/26/18 07:02 Pulse 70 12/26/18 07:02 Resp 18 12/26/18 07:02 BP 131/81 12/26/18 07:02 Pulse Ox 92 12/26/18 07:02 H&P (including ROS) documented in medical record: Yes Previous reaction to sedatives/anesthetics: No Dietary Status: NPO after Midnight Airway Assessment: Patient can open mouth completely, TMJ function normal Dentition: full dentition Possible difficult airway: No ASA Classification *see protocol: CLASS II-Mild systemic disease Cardiac Registry (Cardio Only) - Functional Capacity Functional Capacity: >=4 METS with symptoms - Clincal Frailty Scale Clinical Frailty Scale: Well
[2018-12-26] MEDS ORDERED: Verapamil 5 MG/2 ML VIAL ONE (10:43)
[2018-12-26] MEDS ORDERED: Heparin 1,000 UNITS/500 mL 500 ML ONE (10:46)
[2018-12-26] MEDS ORDERED: Iopamidol 125 ML INFUS..BTL ONE (10:46)
[2018-12-26] MEDS ORDERED: *HR* Midazolam HCl 2 MG/2 ML VIAL ONE (10:46)
[2018-12-26] MEDS ORDERED: 0.9 % Sodium Chloride 1,000 ML ONE (10:46)
[2018-12-26] MEDS ORDERED: *HR* FentaNYL (PF) 100 MCG/2 ML VIAL ONE (10:46)
[2018-12-26] MEDS ORDERED: *HR* Heparin 10,000 UNIT/10 ML VIAL ONE (10:46)
[2018-12-26] MEDS ORDERED: Nitroglycerin 1,000 MCG/10 ML VIAL IV ONE (10:47)
--- NOTE | 2018-12-26 11:35 | Event Note ---
Date of Encounter: 12/26/18 Time of Encounter: 11:34 - Cardiology Event Note Cath completed LVEF 60%RCA no late restenosis. PIG artery tubular 60%. FFR 1.0 normal. LCA 55% OM1 lesion Non cardiac chest pain. Discharge plans per primary service.
--- NOTE | 2018-12-26 11:51 | Invasive Diagnostic Lab Proc ---
Name: Aston Hatfield Date of Study: 12/26/2018 Date: 1945 Ht: 66.9in Medical Record#: [id number] Age: 73 Wt: 227.08lb Gender: Male BSA: 2.13 Order #: [id number] BMI: 35.64 Physicians Procedure Physician: Fabian Campbell MD Referring MD: Referring MD: Staff Name Position Time In DiomedesMeri zamoranoYana RT (R) Scrub 10:41 AM Sonai Lee RT (R) Scrub 10:41 AM Cale Giordano RN Iron Erector 10:41 AM Latoya Villeda RT (R) Monitor 10:41 AM Procedures Performed Procedure L HRT ARTERY/VENTRICLE ANGIO Pre-Procedure Checklist Informed consent is complete signed and on chart. H&P is on chart. ID band is on and ID verified with patient. Patient NPO for procedure The procedure was described for the patient and questions were answered. Blood Pressure: 131/81 ECG is on chart. Rhythm: NSR Plan of Care Patient will tolerate the procedure without complications. Adequate level of comfort will be maintained. Hemodynamics will remain stable Patient will recover from procedure without complications. Respiratory function will be maintained. Cardiac rhythm will remain stable. Patient temperature will be maintained. Patient and/or family have verbalized understanding of the procedure. Patient Education Chief Complaint/Reason for Test: Cardiac Cath Developmental Category: Geriatric (65+ years) Developmentally Appropriate for Age: Yes Learning Barriers: None Education Needs: Procedure Education Method: Verbal Information Taught: Cardiac Cath Educational Evaluation: Able to repeat information Intravenous Access Time IV Size Location DC'd Fluid/Drip Rate Units RN 20g 1 /" Patent On Arrival Rt Hand 0.9NaCl Cale Giordano RN Allergies acetaminophen hydrocodone Vital Signs Time BP (mmHg) HR (bpm) O2 Sat. RR (bpm) LOC 10:41 AM / % 5 = Fully awake and oriented or at pre-proc level 10:46 AM / % 4 = Oriented but drowsy 10:46 AM / % 4 = Oriented but drowsy 11:01 AM / % 4 = Oriented but drowsy 11:16 AM / % 10:40 AM 160 / 95 71 95 % 24 10:45 AM 131 / 79 132 91 % 18 10:49 AM 125 / 89 70 91 % 25 10:54 AM 140 / 80 73 94 % 17 11:00 AM 104 / 61 108 90 % 21 11:04 AM 122 / 72 72 91 % 22 11:10 AM 125 / 73 73 89 % 21 11:15 AM 116 / 73 72 89 % 21 11:19 AM 130 / 75 71 88 % 21 11:25 AM 125 / 79 71 91 % 32 Procedural Medications Time Medication Dose Units Method Given By 10:41 AM Oxygen 2 L/min nasal cannula Cale Giordano RN 10:42 AM Versed 2 mg Intravenous Cale Giordano RN 10:52 AM Lidocaine 2% 2 ml Subcutaneous Fabian Campbell MD 10:54 AM Heparin 4000 units Nitroglycerin 200 mcg Verapamil 2.5 mg Intraarterial Fabian Campbell MD 11:22 AM 90mg Adenosine in 90 ml 0.9 NS 865 mcg Intravenous Cale Giordano RN ASA Classification: CLASS II- Mild systemic disease (i.e. well-controlled diabetes, hypertension, asthma, cigarette smoking) Hannah Score Preprocedure Postprocedure Activity 2- Moves 4 extremities sustained head lift Activity 2- Moves 4 extremities sustained head lift Circulation 2- SBP +/= 20 points of pre-anesthetic level Circulation 2- SBP +/= 20 points of pre-anesthetic level Consciousness 2- Awake and alert oriented x 3 Consciousness 2- Awake and alert oriented x 3 O2 Saturation 2- Able to maintain O2 satruation of 92% on room air O2 Saturation 2- Able to maintain O2 satruation of 92% on room air Respiratory 2- Able to deep breathe and cough well Respiratory 2- Able to deep breathe and cough well Total Score 10 Total Score 10 Contrast Agent: Isovue Diagnostic Contrast: 135 ml Total Contrast: 135 ml Fluoro Dose: 6035 mGy Procedure Log Time Note Enter By 10:32 AM 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 Informed consent was obtained. [facility] 10:32 AM CathStat 10:38 AM Recorded ECG: HR=69 Condition=Condition 1 10:39 AM Vitals capture started with the following parameters, Patient=Adult, Interval=5 min, Initial Tpllxgrj=286 mmHg, Deflation Rate=3 mmHg, Cuff placed on Right Arm 10:40 AM Procedure start 10:40 [facility] 10:40 AM HR=71 bpm, AWTD=035/95 mmhg, SpO2=95.0 %, Resp=24 B/min 10:41 AM ASA Class CLASS II- Mild systemic disease (i.e. well-controlled diabetes, hypertension, asthma, cigarette smoking) [facility]:41 AM Hair removed from procedure site in holding area using clippers. Right wrist and Right groin prepped with Chloraprep by Cale Giordano RN, then patient was draped. Skin intact. [facility]: AM Meri Hercules RT (R) Position: Scrub Time in: : [facility] : AM Sonia Lee RT (R) Position: Scrub Time in: : [facility] : AM Cale Giordano RN Position: Iron Erector Time in: : [facility] : AM Latoya Villeda RT (R) Position: Monitor Time in: : [facility] : AM Time: 10:41 Patient comfortable and pain free: Yes [facility] : AM Time: :LOC: 5 = Fully awake and oriented or at pre-proc level [facility] : AM Time: 10:41 Oxygen on at 2 L/min per nasal cannula by Cale Giordano RN [facility] 10:42 AM Time: 10:42 Versed 2 mg Intravenous Given by Cale Giordano RN [facility] 10:45 AM KL=742 bpm, QYQD=884/79 mmhg, SpO2=91.0 %, Resp=18 B/min 10:46 AM Time: 10:46 Patient comfortable and pain free: Yes [facility] :46 AM Time: 10:46LOC: 4 = Oriented but drowsy [facility] 10:49 AM HR=70 bpm, NPOU=217/89 mmhg, SpO2=91.0 %, Resp=25 B/min 10:51 AM Time out was performed according to hospital policy. Conscious sedation and anesthesia was achieved (see medication log with in this report above) [facility] 10[facility]52 AM Pressure channel 2 zeroed. 10:52 AM Time: 10:52 2 ml Lidocaine 2% to right radial Subcutaneous Given by Fabian Campbell MD [facility] 10:54 AM Access obtained by percutaneous puncture. 5/6Fr 10cm Terumo Glidesheath sheath placed in right Radial artery. [id number] [facility] 10:54 AM Time: 10:54 Patient given 4,000 units Heparin, 200 mcg Nitroglycerin, and 2.5 mg Verapamil Intraarterial by Fabian Campbell MD. This is given to reduce risk of vessel spasm and thrombosis. [facility] 10:54 AM 0.035 260cm Navilyst 3mmJ wire [id number] [facility] 10:54 AM HR=73 bpm, VIVK=704/80 mmhg, SpO2=94.0 %, Resp=17 B/min 10:55 AM 5Fr FL3.5 catheter inserted over the wire [id number] [facility] 10:57 AM Recorded Pressure: Ao, HR=77, Condition=Condition 1 (Aorta) Ao 112/78/92 10:57 AM LCA angiography performed in multiple views. [facility] 11:00 AM ZE=671 bpm, EJNC=398/61 mmhg, SpO2=90.0 %, Resp=21 B/min 11:00 AM Catheter removed [facility] 11:01 AM 5Fr FR 4 catheter inserted over the wire [facility] 11:01 AM Time: 10:46 Patient comfortable and pain free: Yes [facility] 11:01 AM Time: 10:46LOC: 4 = Oriented but drowsy [facility] 11:02 AM Recorded Pressure: Ao, HR=69, Condition=Condition 1 (Aorta) Ao 131/85/104 11:02 AM RCA angiography performed in multiple views. [facility] 11:03 AM Recorded Pressure: Ao, HR=69, Condition=Condition 1 (Aorta) Ao 135/85/105 11:04 AM Catheter removed [facility] :04 AM 5Fr Pigtail catheter inserted over the wire [facility] 11:04 AM HR=72 bpm, EPEE=532/72 mmhg, SpO2=91.0 %, Resp=22 B/min 11:05 AM Catheter crossed the aortic valve and was selectively placed in the left ventricle. Pressures recorded on pullback for left heart catheterization. [facility] 11:05 AM Recorded Pressure: LV, HR=75, Condition=Condition 1 (Left Ventricle) LV 90/13/12 11:06 AM Recorded Pressure: LV, HR=89, Condition=Condition 1 (Left Ventricle) LV 131/25/33 11:06 AM Recorded Pressure: LV, Ao, HR=74, Condition=Condition 1 (Left Ventricle) LV ?/?/?, (Aorta) Ao 125/72/95 11:07 AM Bolus angiogram of left Ventricle complete: hand injection. [facility] 11:07 AM Catheter removed [facility] 11:09 Pressure channel 4 zeroed. 11:09 AM 6Fr JR 4 Runway guide catheter was used to cannulate the PCI vessel successfully. reused? No [facility] 11:10 AM HR=73 bpm, LMMK=062/73 mmhg, SpO2=89.0 %, Resp=21 B/min 11:11 AM .014 Balance 300cm guide wire across target lesion- successful. reused? No [facility] 11:15 AM HR=72 bpm, DFDI=645/73 mmhg, SpO2=89.0 %, Resp=21 B/min 11:16 AM Time: 11:01 Patient comfortable and pain free: Yes [facility] 11:16 AM Time: 11:LOC: 4 = Oriented but drowsy [facility] 11:19 AM Asist FFR Catheter advanced to target lesion. [facility] :19 AM HR=71 bpm, FNZF=230/75 mmhg, SpO2=88.0 %, Resp=21 B/min 11:21 AM Pressure channel 4 equalization failed. 11:21 AM Pressure channel 4 equalization failed. 11:21 AM Pressure channel 4 zero failed. 11:22 AM Pressure channel 4 equalized to channel 2. 11:22 AM Time: : 90mg Adenosine in 90 ml 0.9 NS 865 mcg Intravenous Given by Cale Giordano RN Pleitez pump [facility] 11:24 AM FFR: Value=1.08, Condition=Condition 1, Device=VOLCANO PRIME WIRE 11:24 AM Recorded Pressure: Ao, Ao, Wire, FFR=1.08, HR=65, Condition=Condition 1 (Aorta) Ao ?/?/?, (Aorta) Ao ?/?/?, (FFR Wire) Wire ?/?/? 11:24 AM Adenosine turned off. [facility] 11:24 AM FFR Measurement: 1.00 [facility] 11:25 AM HR=71 bpm, CVQC=143/79 mmhg, SpO2=91 %, Resp=32 B/min 11:25 AM Flow Wire/Catheter removed intact amil 11:25 AM Guide catheter removed intact. [facility] 11:25 AM Procedure completed at 11:25 12/26/2018 [facility] 11:26 AM Did you address JERRY flow and Dominance? YesCoronary Dominance: right [facility] 11:27 AM Sign out completed: Radiation Dose 768.57 mGy, 6035 Gy/cm2 Fluoro Time: 8.1 Isovue 370 - 200ml contrast 135 ml given by Fabian Campbell MD. Complications: None. The patient was discharged out of the lab analyst in stable condition. Sedation minutes 43. Cardiac Rehab Consult needed: No. Confirmed administered medications: Yes [facility] 11:27 AM Isovue 370 - 125ml,1 Bottle(s) used. [facility] 11:27 AM Arterial sheath pulled, Vasc Band closure device used and was Successful S/N. [facility] 11:27 AM 15 ml air in Vasc Band. [facility] 11:28 AM Estimated Blood Loss: minimal [facility] 11:29 AM Post ECG NSR [facility] 11:29 AM Post [facility] AM Information taught Cardiac Cath and Vasc Band [facility] 11:29 AM Education needs Procedure, Plan of Care, and Responsibilities of Patient in Care [facility] 11:29 AM Learning barriers :None [facility] 11:29 AM Education Methods Verbal [facility] 11:29 AM Education evaluation Able to repeat information [facility] 11:29 AM Site status No bleeding/ No Hematoma - Rt Groin as reported by at 11:29 [facility] 11:32 AM Time: 11:16LOC: [facility] 11:32 AM Report given to Elizabeth KENNEDY Pt taken to 3B Room #54. 11:29 [facility] 11:32 AM Delay to floor No [place] 11:32 AM Patient out of room: 11:32 [facility] 11:33 AM Family placed in consult room. [facility] 11:38 AM Lesion found in Proximal RCA. Pre Stenosis: 20 Pre JERRY Flow: [facility] 11:38 AM Lesion found in Mid RCA. Pre Stenosis: 20 Pre JERRY Flow: [place] 11:38 AM Lesion found in Distal RCA. Pre Stenosis: 60 Pre JERRY Flow: [place] 11:38 AM Lesion found in 1st Marginal. Pre Stenosis: 50 Pre JERRY Flow: [place] 11:38 AM Circumflex, Obtuse Marginal, Left Posterior Descending, and Left Posterolateral Coronary Arteries with 50 % stenosis. If graft is supplying this area, 0 % stenosis [facility] 11:38 AM Right Coronary, Right Posterior Descending Arteries with Right Posterolateral and Acute Marginal branches with 60 % stenosis. If graft is supplying this area, 0 % stenosis [facility] Complications Complication None Hemodynamics Pressures Site Systolic/A Wave Diastolic/V Wave Mean AO 112 78 92 AO 131 85 104 AO 135 85 105 LV 90 13 12 LV 131 25 33 LV AO 125 72 95 AO AO Wire Post Procedure Information Blood Pressure: 125/79 mmHg Rhythm: NSR Post procedural instructions were given Closure Device Time Device Success/Fail 12/26/2018 11:39:00 AM Mechanical Compression Successful Site Checks Time Location Status Staff Sheath In? Note 11:29 AM Rt Groin No bleeding/ No Hematoma Pulses Time Site Pre-Procedure Post-Procedure Note Bilateral DP & PT 2+ Bilateral radial 2+ Updated by Latoya Villeda, RT (R) on 12/26/2018 11:43:42 AM electronically signed on 12/26/2018 11:44:52 AM with status of Final
--- NOTE | 2018-12-26 11:56 | Discharge Summary ---
- NOTES TO OUTPATIENT PROVIDER Notes to Outpatient Provider: Resented with chest pain underwent cardiac catheter which was normal Date of Encounter: 12/26/18 Time of Encounter: 11:54 - Discharge Diagnosis (1) Chest pain Priority: Primary Status: Acute Qualifiers: Chest pain type: unspecified Qualified Code(s): R07.9 - Chest pain, unspecified (2) HTN (hypertension) Priority: Secondary Status: Chronic Qualifiers: Hypertension type: essential hypertension Qualified Code(s): I10 - Essential (primary) hypertension (3) Diabetes mellitus Priority: Secondary Status: Chronic Qualifiers: Diabetes mellitus type: type 2 Diabetes mellitus intermediate insulin use: without exterminator helper use Diabetes mellitus complication status: without complication Qualified Code(s): E11.9 - Type 2 diabetes mellitus without complications (4) CAD (coronary artery disease) Priority: Secondary Status: Chronic Qualifiers: Coronary Disease-Associated Artery/Lesion type: [place] artery [place] vs. transplanted heart: [place] heart Associated angina: angina presence unspecified Qualified Code(s): I25.10 - Atherosclerotic heart disease of [place] coronary artery without angina pectoris (5) PATRICK (obstructive sleep apnea) Priority: Secondary Status: Chronic (6) Berrios's esophagus Priority: Secondary Status: Chronic Qualifiers: Berrios's esophagus type: with dysplasia of unspecified degree Qualified Code(s): K22.719 - Berrios's esophagus with dysplasia, unspecified; K22.71 - Berrios's esophagus with dysplasia (7) COPD (chronic obstructive pulmonary disease) Priority: Secondary Status: Chronic Qualifiers: COPD type: unspecified COPD Qualified Code(s): J44.9 - Chronic obstructive pulmonary disease, unspecified (8) HLD (hyperlipidemia) Priority: Secondary Status: Chronic Qualifiers: Hyperlipidemia type: unspecified Qualified Code(s): E78.5 - Hyperlipidemia, unspecified (9) Hypothyroidism Priority: Secondary Status: Chronic Qualifiers: Hypothyroidism type: unspecified Qualified Code(s): E03.9 - Hypothyroidism, unspecified Hospital course: Mr. Hatfield is a 73 year old male past medical history of Berrios's esophagus diabetes CAD with stent placement 2006 hypertension hyperlipidemia hypothyroidism patient presented to [facility] with complaints of chest pain that occurred while walking. Describes at 510 retrosternal chest pain lasting more than 30 minutes without any radiations or aggravating factors. He did take 2 nitroglycerin which did improve his pain. He has a history of Berrios's esophagus and underwent EGD approximately a month ago without any significant changes. Troponins were negative 2 no ischemic changes on EKG with normal chest x-ray. He did have a cardiac stress test in April which was negative for any ischemia or infarct cardiac echo with EF of 60-65%. He is evaluated by cardiology patient did undergo a left heart catheter which was normal. He has been chest pain-free during admission currently hemodynamically stable patient will follow-up with cardiology and primary care as an outpatient - Time Spent with Patient Total time spent providing and/or coordinating discharge services: - Discharge Medications Prescriptions: No Action metFORMIN [Glucophage] 500 mg PO BID Levothyroxine [Synthroid] 75 mcg PO DAILY Aspirin [Lo-Dose Aspirin EC] 81 mg PO HS Nitroglycerin [Nitrostat] 0.4 mg SL Q5M PRN PRN Reason: Chest Pain Psyllium Husk [Daily Fiber] 2 cap PO BID Atorvastatin [Lipitor] 40 mg PO HS Losartan/Hydrochlorothiazide [Hyzaar 100-25 Tablet] 1 tab PO DAILY Omeprazole [PriLOSEC] 40 mg PO BID Home Medications: Levothyroxine [Synthroid] 75 mcg PO DAILY 08/07/15 [History] metFORMIN [Glucophage] 500 mg PO BID 08/07/15 [History] Aspirin [Lo-Dose Aspirin EC] 81 mg PO HS 09/05/16 [History] Nitroglycerin [Nitrostat] 0.4 mg SL Q5M PRN 09/05/16 [History] Atorvastatin [Lipitor] 40 mg PO HS 11/08/17 [History] Losartan/Hydrochlorothiazide [Hyzaar 100-25 Tablet] 1 tab PO DAILY 11/08/17 [History] Psyllium Husk [Daily Fiber] 2 cap PO BID 11/08/17 [History] Omeprazole [PriLOSEC] 40 mg PO BID 12/24/18 [History] Allergies/Adverse Reactions: Allergy/AdvReac Type Severity Reaction Status Date / Time hydrocodone [From Vicodin] AdvReac Itching Verified 12/25/18 11:00 Date of admission: 12/24/18 17:07 Primary care physician: Osmany Berrios DO Consults: 12/24/18 16:28 Consult to Cardiology [CONS] Routine Comment: Consulting Provider: Cardiology Julia Reason for Consult: patient Hx of CAD. presenting with chest pain. stress test done about 7 months ago negative for ischemia Call Completed: No Discharging clinician: Melba Brown Anticipated date of discharge: 12/26/18 - Constitutional Vitals: Temp Pulse Resp BP Pulse Ox 97.8 F 70 18 131/81 92 12/26/18 07:02 12/26/18 07:02 12/26/18 07:02 12/26/18 07:02 12/26/18 07:02 Exam: Vitals: reviewed General: Alert and oriented x4. In mild distress due to chest pain Skin:Normal color, no rash, no lesions. HEENT: EOM, pupils equal, round and reactive. Cardiovascular: RRR, normal S1 & S2, no rubs, murmurs or gallops. Lungs: CTA b/l, no wheezes or crackles. Abdomen: Soft, non-tender, no rigidity. Extremities: No deformity, no edema or tenderness, no joint swelling or clubbing. Neurological: Normal cognition and motor skills. Rest of the physical exam is non contributory - Patient Status Disposition: Home, Self-Care Condition: Fair Functional capacity at discharge: independent ambulation Overall status at discharge: patient is back to baseline - Discharge Instructions Follow Up With: Osmany Berrios DO [Primary Care Provider] - - Diet and Activity Activity: increase activity as tolerated Diet: advance to your usual diet
[2018-12-26 15:54] VITALS: BP 144/84
[2018-12-26] MEDS ORDERED: Adenosine 90 MG/30 ML MLS IV ONE (15:54)
--- NOTE | 2018-12-28 23:55 | Electrocardiograph Report ---
[facility] Test Date: 2018-12-24 Pat Name: Aston Hatfield Department: [id number] Room: 3B54 Gender: M Sightseeing Guide: : 1945 Requested By: Gee Post Order Number: [id number] Reading MD: Carline Rosado Measurements Intervals [place] Rate: 83 P: 55 NV: 159 QRS: 38 QRSD: 105 T: 70 QT: 342 QTc: 382 Interpretive Statements SINUS RHYTHM NONSPECIFIC T-WAVE ABNORMALITY Electronically Signed On 12-28-2018 23:53:25 EDT by Carline Rosado
== END 2018-12-26 15:55 | disposition home or self-care (01) ==
LOC: EMEROOARM 13:43 → 3BNU 13:43
PROVIDERS: ADMIT Internal Medicine Nephrology; ATTEND Internal Medicine Nephrology

== ENCOUNTER 2021-02-25 16:22 | Observation (INO) ==
[2021-02-25 18:12] LABS: Hemoglobin 8.7 g/dL (12.9-16.9)
[2021-02-25 18:13] LABS: Basophils # 0.1 K/mcL (0.0-0.2); Basophils % 0.6 %; Eosinophils # 0.2 K/mcL (0.0-0.6); Eosinophils % 2.3 %; Hematocrit 31.9 % (37.5-50.1); Immature Granulocytes % 3.3 % (0-4); Lymphocytes # 2.2 K/mcL (0.6-4.6); Mean Corpuscular HGB Conc 27.3 g/dL (31.6-35.5); Mean Corpuscular Hemoglobin 22.4 pg (28.0-33.3); Mean Corpuscular Volume 82.2 fL (83.0-100.0); Mean Platelet Volume 10.9 fL (9.4-12.4); Monocytes % 10.4 %; Platelet Count 192 K/mcL (140-400); Red Blood Count 3.88 M/mcL (4.19-5.50); Segmented Neutrophils % 61.4 %; White Blood Count 9.8 K/mcL (4.3-11.1)
[2021-02-25 18:31] LABS: Alanine Aminotransferase 10 Units/L (7-52); Albumin/Globulin Ratio 1.5 (1.1-2.2); Alkaline Phosphatase 41 Units/L (34-104); Aspartate Amino Transferase 14 Units/L (13-39); BUN/Creatinine Ratio 28 (6-26); Bilirubin,Indirect 0.4 mg/dL (0.0-1.0); Bilirubin,Total 0.4 mg/dL (0.3-1.0); Blood Urea Nitrogen 19 mg/dL (8-23); Calcium 9.3 mg/dL (8.6-10.3); Carbon Dioxide 26 mEq/L (23-29); Chloride 106 mEq/L (98-107); Globulin 2.6 g/dL (2.4-3.5); Glucose 199 mg/dL (70-105); Osmolality,Calculated 294 (280-300); Potassium 4.4 mEq/L (3.5-5.1); Sodium 138 mEq/L (136-145); Total Protein 6.6 g/dL (6.4-8.9); Troponin I < 0.03 ng/mL (< 0.04); eGFR For African Americans > 60 (> 60); eGFR For Non-African Americans > 60 (> 60)
[2021-02-25 18:56] LABS: Anisocytosis 1+ (Not Present); Macrocytosis Present (Not Present); Platelet Estimate Normal (Normal)
[2021-02-25] MEDS ORDERED: Pantoprazole 40 MG VIAL IVP STA (20:32)
[2021-02-25] MEDS ORDERED: *HR* HYDROcodone/Acet 5/325 mg TABLET PO PRN (20:50)
[2021-02-25] MEDS ORDERED: Acetaminophen 325 MG TABLET PO PRN (20:50)
[2021-02-25] MEDS ORDERED: Naloxone 0.4 MG/ML INJ IVP PRN (20:50)
[2021-02-25] MEDS ORDERED: Ondansetron 4 MG/2 ML VIAL IVP PRN (20:50)
[2021-02-25] MEDS ORDERED: Melatonin 3 MG TABLET PO PRN (20:50)
[2021-02-25] MEDS ORDERED: Dextrose Gel 15 GM/37.5 ML TUBE PO PRN ×2 (20:53)
[2021-02-25] MEDS ORDERED: D5% in Water 1,000 ML IVC PRN (20:53)
[2021-02-25] MEDS ORDERED: *HR* Dextrose 50 % in Water (Syg) 50 ML SYRINGE IVP PRN (20:53)
[2021-02-25] MEDS ORDERED: Furosemide 20 MG/2 ML VIAL IVP ONE (21:04)
[2021-02-25 23:18] LABS: Influenza A PCR Negative (Negative); Influenza B PCR Negative (Negative); Resp. Syncytial Virus PCR Negative (Negative)
[2021-02-25 23:21] LABS: SARS-CoV-2 by PCR (In House) Negative (Negative)
[2021-02-26] MEDS: Insulin LISPRO 300 UNITS/3 ML VIAL SUBQ SCH ×4 (02:00→16:59)
[2021-02-26] MEDS: Aspirin Enteric Coated 81 MG Tablet PO SCH ×2 (02:02→20:36)
[2021-02-26 04:44] LABS: Basophils # 0.1 K/mcL (0.0-0.2); Basophils % 1.1 %; Eosinophils # 0.3 K/mcL (0.0-0.6); Eosinophils % 2.8 %; Hematocrit 33.2 % (37.5-50.1); Hemoglobin 8.7 g/dL (12.9-16.9); Immature Granulocytes % 4.1 % (0-4); Lymphocytes # 2.5 K/mcL (0.6-4.6); Lymphocytes % 26.9 %; Mean Corpuscular HGB Conc 26.2 g/dL (31.6-35.5); Mean Corpuscular Hemoglobin 21.6 pg (28.0-33.3); Mean Corpuscular Volume 82.6 fL (83.0-100.0); Monocytes % 11.3 %; Neutrophils # 4.9 K/mcL (1.6-8.9); Platelet Count 156 K/mcL (140-400); Red Blood Count 4.02 M/mcL (4.19-5.50); Red Cell Distribution Width 18.1 % (11.5-14.5); Segmented Neutrophils % 53.8 %; White Blood Count 9.1 K/mcL (4.3-11.1)
[2021-02-26 04:54] LABS: INR 1.2; Prothrombin Time 12.9 Seconds (9.4-12.1)
[2021-02-26 05:13] LABS: Anisocytosis 1+ (Not Present); Hypochromasia Present (Not Present); Large Platelets Present (Not Present); Platelet Estimate Normal (Normal)
[2021-02-26] MEDS: Pantoprazole 40 MG VIAL IVP SCH ×2 (05:29→16:59)
[2021-02-26 05:34] LABS: % Iron Saturation 4 % (20-55); BUN/Creatinine Ratio 23 (6-26); Blood Urea Nitrogen 17 mg/dL (8-23); Calcium 9.4 mg/dL (8.6-10.3); Carbon Dioxide 28 mEq/L (23-29); Chloride 105 mEq/L (98-107); Glucose 175 mg/dL (70-105); Iron 20 mcg/dL (65-175); Osmolality,Calculated 294 (280-300); Potassium 4.8 mEq/L (3.5-5.1); Sodium 139 mEq/L (136-145); Transferrin 407 mg/dL (203-362); eGFR For African Americans > 60 (> 60); eGFR For Non-African Americans > 60 (> 60)
[2021-02-26 05:36] LABS: Ferritin < 8 ng/mL (20-250)
[2021-02-26] MEDS: Furosemide 40 MG/4 ML VIAL IVP SCH ×2 (10:38→20:36)
[2021-02-26] MEDS ORDERED: Ipratropium/Albuterol Neb 3 ML IH PRN (10:41)
[2021-02-26] MEDS: Azithromycin 500 MG in 0.9 % Sodium Chloride 250 ML IVPB SCH (12:06)
[2021-02-26] MEDS: Iron Sucrose Complex 200 MG in 0.9 % Sodium Chloride 100 ML IVPB SCH (12:12)
[2021-02-26] MEDS ORDERED: SODIUM CHLORIDE/NAHCO3/KCL/PEG 4,000 ML SOLN.RECON PO ONE (16:19)
[2021-02-26 21:44] LABS: ABG Base Excess 6 mEq/L (-2 to 3); ABG HCO3 31 mEq/L (21-27); ABG Oxygen Saturation 85 % (95-98); ABG PCO2 47 mmHg (35-45); ABG PH 7.43 pH Units (7.32-7.45); ABG PO2 50 mmHg (85-104); ABG TCO2 32 mEq/L (20-26)
[2021-02-27] MEDS: Insulin LISPRO 300 UNITS/3 ML VIAL SUBQ SCH ×3 (00:56→12:33)
[2021-02-27] MEDS: Pantoprazole 40 MG VIAL IVP SCH (06:03)
[2021-02-27] MEDS ORDERED: *HR* Propofol 200 MG/20 ML VIAL IVP ONE (08:06)
[2021-02-27] MEDS ORDERED: Lidocaine -MPF 2% 2 ML VIAL ONE (08:06)
[2021-02-27] MEDS: Iron Sucrose Complex 200 MG in 0.9 % Sodium Chloride 100 ML IVPB SCH (08:55)
[2021-02-27] MEDS: Furosemide 40 MG/4 ML VIAL IVP SCH (12:10)
[2021-02-27 12:26] VITALS: BP 116/68; PULSE 65; TEMP 97.5
[2021-02-27 12:28] VITALS: O2SAT 91
[2021-02-27] MEDS: Azithromycin 500 MG in 0.9 % Sodium Chloride 250 ML IVPB SCH (12:28)
[2021-02-27] MEDS ORDERED: Simethicone 40 MG/0.6 ML MLS IR ONE (14:59)
[2021-02-27] MEDS ORDERED: Insulin LISPRO 300 UNITS/3 ML VIAL SUBQ SCH (16:30)
== END 2021-02-27 16:00 | disposition home or self-care (01) ==
LOC: 3ANU 16:22 → EMEROOARM 16:22 → SUATTDRO 23:24 → 3ANU 23:42
PROVIDERS: ADMIT Family Medicine; ATTEND Internal Medicine
PROC: ENDOCCB (2021-02-27 08:30)
PROC: ENDOEBX (2021-02-27 08:30)

== ENCOUNTER 2021-12-27 15:36 | Observation (INO) ==
[2021-12-27 16:26] LABS: Basophils # 0.1 K/mcL (0.0-0.2); Eosinophils # 0.2 K/mcL (0.0-0.6); Eosinophils % 2.7 %; Hematocrit 40.6 % (37.5-50.1); Hemoglobin 12.3 g/dL (12.9-16.9); Immature Granulocytes % 2.5 % (0-4); Lymphocytes # 1.6 K/mcL (0.6-4.6); Lymphocytes % 21.9 %; Mean Corpuscular HGB Conc 30.3 g/dL (31.6-35.5); Mean Corpuscular Hemoglobin 29.5 pg (28.0-33.3); Mean Corpuscular Volume 97.4 fL (83.0-100.0); Mean Platelet Volume 11.4 fL (9.4-12.4); Monocytes # 0.8 K/mcL (0.0-1.3); Monocytes % 10.8 %; Neutrophils # 4.4 K/mcL (1.6-8.9); Platelet Count 149 K/mcL (140-400); Red Blood Count 4.17 M/mcL (4.19-5.50); Red Cell Distribution Width 16.1 % (11.5-14.5); Segmented Neutrophils % 61.1 %; White Blood Count 7.1 K/mcL (4.3-11.1)
[2021-12-27 16:32] LABS: INR 1.1; Prothrombin Time 12.2 Seconds (9.4-12.1)
[2021-12-27 16:35] LABS: Activated Partial Thrombo Time 30.2 Seconds (26.0-36.0)
[2021-12-27 16:53] LABS: BUN/Creatinine Ratio 21 (6-26); Blood Urea Nitrogen 18 mg/dL (8-23); Calcium 9.2 mg/dL (8.6-10.3); Carbon Dioxide 28 mEq/L (23-29); Chloride 104 mEq/L (98-107); Glucose 171 mg/dL (70-105); Osmolality,Calculated 296 (280-300); Potassium 4.1 mEq/L (3.5-5.1); Sodium 140 mEq/L (136-145); Troponin I < 0.03 ng/mL (< 0.04)
[2021-12-27] MEDS ORDERED: Aspirin 325 MG TABLET ONE (20:00)
[2021-12-27] MEDS ORDERED: Ondansetron 4 MG/2 ML VIAL IVP PRN (22:56)
[2021-12-27] MEDS ORDERED: Acetaminophen 325 MG TABLET PO PRN (22:56)
[2021-12-27] MEDS ORDERED: Naloxone 0.4 MG/ML INJ IVP PRN (22:56)
[2021-12-27] MEDS ORDERED: Melatonin 3 MG TABLET PO PRN (22:56)
[2021-12-27] MEDS ORDERED: D5% in Water 1,000 ML IVC PRN (22:59)
[2021-12-27] MEDS ORDERED: *HR* Dextrose 50 % in Water (Syg) 50 ML SYRINGE IVP PRN (22:59)
[2021-12-27] MEDS ORDERED: Dextrose Gel 15 GM/37.5 ML TUBE PO PRN ×2 (22:59)
[2021-12-27] MEDS ORDERED: traZODone 50 MG TABLET PO PRN (23:34)
[2021-12-28 02:36] LABS: Basophils % 0.7 %; Eosinophils # 0.2 K/mcL (0.0-0.6); Eosinophils % 3.3 %; Hematocrit 37.7 % (37.5-50.1); Hemoglobin 11.4 g/dL (12.9-16.9); Immature Granulocytes % 2.1 % (0-4); Lymphocytes # 1.4 K/mcL (0.6-4.6); Lymphocytes % 23.7 %; Mean Corpuscular HGB Conc 30.2 g/dL (31.6-35.5); Mean Corpuscular Hemoglobin 29.6 pg (28.0-33.3); Mean Corpuscular Volume 97.9 fL (83.0-100.0); Mean Platelet Volume 11.7 fL (9.4-12.4); Monocytes # 0.7 K/mcL (0.0-1.3); Monocytes % 11.3 %; Neutrophils # 3.6 K/mcL (1.6-8.9); Platelet Count 118 K/mcL (140-400); Red Blood Count 3.85 M/mcL (4.19-5.50); Red Cell Distribution Width 16.1 % (11.5-14.5); Segmented Neutrophils % 58.9 %; White Blood Count 6.1 K/mcL (4.3-11.1)
[2021-12-28 02:56] LABS: Estimated Average Glucose 137 mg/dl; Hemoglobin A1C 6.4 %
[2021-12-28 02:57] LABS: Albumin 3.6 g/dL (3.5-5.7); Albumin/Globulin Ratio 1.6 (1.1-2.2); Bilirubin,Total 0.4 mg/dL (0.3-1.0); Calcium 8.8 mg/dL (8.6-10.3); Globulin 2.3 g/dL (2.4-3.5); Magnesium 1.9 mg/dL (1.6-2.6); Phosphorous 3.8 mg/dL (2.7-4.5); Potassium 3.7 mEq/L (3.5-5.1); Total Protein 5.9 g/dL (6.4-8.9)
[2021-12-28] MEDS ORDERED: *HR* Heparin 5,000 UNIT/ML VIAL SQ SCH ×2 (06:00→14:00)
[2021-12-28] MEDS ORDERED: Regadenoson 0.4 MG/5 ML SYRINGE IVP ONE (06:15)
[2021-12-28] MEDS ORDERED: amLODIPine 5 MG TABLET PO SCH (09:00)
[2021-12-28] MEDS ORDERED: Aspirin Enteric Coated 81 MG Tablet PO SCH (09:00)
[2021-12-28] MEDS ORDERED: Furosemide 40 MG TABLET PO SCH (09:00)
[2021-12-28] MEDS: Insulin LISPRO 300 UNITS/3 ML VIAL SUBQ SCH ×2 (09:19→11:19)
[2021-12-28] MEDS ORDERED: Budesonide/Formoterol 160/4.5 1 PUFF INH IH SCH (10:00)
[2021-12-28 14:42] VITALS: TEMP 97.9; O2SAT 93
[2021-12-28] MEDS ORDERED: Nitroglycerin 0.4 MG TAB.SUBL SL PRN (15:04)
[2021-12-28 15:08] VITALS: BP 128/70; PULSE 62
[2021-12-28] MEDS ORDERED: traZODone 50 MG TABLET PO SCH (21:00)
[2021-12-28] MEDS ORDERED: Metoprolol XL (24 HR) Succ 25 MG TAB.ER.24H PO SCH (21:00)
== END 2021-12-28 17:33 | disposition home or self-care (01) ==
LOC: EMEROOARM 15:36 → 3BNU 15:36
PROVIDERS: ADMIT Internal Medicine; ATTEND Internal Medicine